=== PATIENT | male | born 1990 | race Caucasian/White ===

== ENCOUNTER 2021-10-19 21:45 | Emergency (ER) | payer BC ==
--- NOTE | 2021-10-19 22:34 | ER ---
Nurse's Notes [facility] Name: Juan Gold Age: 31 yrs Sex: Male : 1990 Arrival Date: 10/19/2021 Time: 22:17 Bed Waiting Private MD: Diagnosis: ED Course: 10/19 22:17 Patient arrived in ED. alicja Administered Medications: No medications were administered Outcome: 22:34 Patient left the ED. ld1 Signatures: Mellissa Marsh RN RN ld1 Irene Bolton
== END 2021-10-19 22:34 | disposition left against medical advice (07) ==
LOC: ER 21:45
DX: Z02.9 Encounter for administrative examinations, unspecified (principal)

== ENCOUNTER 2021-10-20 04:46 | Emergency (ER) | payer BC ==
--- OUTSIDE RECORDS SUMMARY | 2021-10-20 04:48 | XMS REPORT | Continuity of Care Document ---
:[address] [facility] t Address [address] [place] [address] Care Team Providers Name Role Phone LISETTE Attending Clinician Unavailable Elie Muller Attending Clinician Unavailable Elie Muller Admitting Clinician Unavailable Payers Payer Name Policy Type Policy Number Effective Date Expiration Date S ource Problems This patient has no known problems. Allergies, Adverse Reactions, Alerts Allergy Allergy Status Severity Reaction(s) Onset Inactive Treating Comm ents Source Name Type Date Date Clinician No Known DA Active U [facility] Allergie 07-04 Clear s 00:00: [facility] morphine DA Active U [facility] 07-04 Clear 00:00: [facility] No Known DA Active U [facility] Contrast 07-10 Clear Allergie 00:00: [facility] No Known DA Active U 2005-0 [facility] Drug 07-10 Clear Allergie 00:00: [facility] No Known DA Active U 2005-0 [facility] Food 07-10 Clear Allergie 00:00: [facility] No Known DA Active U 2005-0 [facility] Other 07-10 Clear Allergie 00:00: [facility] Medications This patient has no known medications. Procedures This patient has no known procedures. Encounters Start End Encounter Admission Attending Care Care Encounter Source Date/Time Date/Time Type Type Clinicians Facility Department ID 2020-11-03 2020-11-03 Outpatient LISETTE [facility] [id number] [place] 00:00:00 00:00:00 FRAN 539 Method i 2020-09-16 2020-09-16 Outpatient LISETTE [facility] [id number] [place] 00:00:00 00:00:00 FRAN 837 Method i 2020-09-16 2020-09-16 Outpatient LISETTE [facility] [id number] [place] 00:00:00 00:00:00 FRAN 666 Method i 2020-09-16 2020-09-16 Outpatient LISETTE [facility] [id number] [place] 00:00:00 00:00:00 FRAN 812 Method i 2020-09-15 2020-09-15 Outpatient LISETTE [facility] [id number] [place] 00:00:00 00:00:00 FRAN [address] 2018-07-04 2018-07-06 Inpatient EM Renzo, [facility] [id number] [facility] 19:34:00 11:24:[address] Results Test Description Test Time Test Comments Results Result Comments Source CALPROTECTIN FECAL 2018-07-12 14:16:00 Test Item Value Reference Range Interpretation Comme nts CALPROTECTIN FECAL (test code 158 ug/g 0-120 H Concentration Interpretation = CALFECAL) Follow-Up<16 - 50 ug/g Normal None>50 -12 0 ug/g Borderline Re-evaluate in 4-6 weeks>120 ug/g Abnormal Re peat as clinically indicatedConcen tration Interpretation Follow-Up<16 - 50 ug/g Normal None>50 -120 ug/g Borderline Re-evaluate in 4-6 weeks >120 u g/g Abnormal Repeat as clini anais indicatedPerformed At: [facility] [place], [place] [id number] Sanjai MD Ph:[phone] reported result: 158 ug/ gEdited by: INFCE on 07/12/18:[id number] 1416: CALPROTECTIN FE previously reported as: 158 Concentr ation Interpretation Follow-Up <16 - 50 ug/g Normal None >5 0 -120 ug/g Borderline Re-evaluate in 4-6 weeks >120 ug/g Abnormal Repeat as clinically indicated CALPROTECTIN [id number] 13:07:00 Test Item Value Reference Range Interpretation Comments CALPROTECTIN FECAL 158 Concentra tion (test code = CALFECAL) Inter pretation Follow-Up<16 - 50 ug/g Normal None>50 -120 ug /g Borderline Re-evaluate in 4-6 weeks>120 ug/g Abnormal Re peat as clinically ind icated SED RATE [id number] 09:16:00 Test Item Value Reference Range Interpretation Comments SED RATE JAYE (test code = 6 mm/hr 0-15 N SEDW) C REACTIVE [id number] 08:05:00 Test Item Value Reference Range Interpretation Comments C REACTIVE PROTEIN (test code = 30.0 MG/L 0.0-2.9 H CRP)
[2021-10-20] MEDS ORDERED: KETOROLAC 30 MG/ML INJ ONE (06:25)
[2021-10-20] MEDS ORDERED: dexAMETHasone 4 MG TAB ONE (06:25)
--- NOTE | 2021-10-20 06:27 | EDPHYS ---
Physician Documentation [facility] Name: Juan Gold Age: 31 yrs Sex: Male : 1990 Arrival Date: 10/20/2021 Time: 04:51 Bed 5 Private MD: JENNY Physician Gene Scott HPI: 10/20 06:17 This 31 yrs old Male presents to ER via Ambulatory with complaints of Back millicent Pain. 06:17 The patient presents with pain and decreased range of motion. The symptoms are located millicent in the low back, lumbar area. Onset: The symptoms/episode began/occurred 2 day(s) ago. The pain does not radiate. Associated signs and symptoms: The patient has no apparent associated signs or symptoms. The problem was sustained without known cause. Severity of symptoms: At their worst the symptoms were mild, moderate, in the emergency department the symptoms are unchanged. The patient has experienced similar episodes in the past, multiple times. Historical: - Allergies: 05:58 No Known Allergies; ll3 - Home Meds: 05:58 None [Active]; ll3 - PMHx: 05:58 None; ll3 - PSHx: 05:58 None; ll3 - Immunization history:: Client reports receiving the 2nd dose of the Covid vaccine. - Social history:: Smoking status: Patient denies any tobacco usage or history of. - Family history:: not pertinent. ROS: 06:17 Constitutional: Negative for fever, chills, and weight loss, Eyes: Negative for injury, millicent pain, redness, and discharge, ENT: Negative for injury, pain, and discharge, Neck: Negative for injury, pain, and swelling, Cardiovascular: Negative for chest pain, palpitations, and edema, Respiratory: Negative for shortness of breath, cough, wheezing, and pleuritic chest pain, Abdomen/GI: Negative for abdominal pain, nausea, vomiting, diarrhea, and constipation, : Negative for injury, bleeding, discharge, and swelling, MS/Extremity: Negative for injury and deformity, Skin: Negative for injury, rash, and discoloration, Neuro: Negative for headache, weakness, numbness, tingling, and seizure, Psych: Negative for depression, anxiety, suicide ideation, homicidal ideation, and hallucinations, Allergy/Immunology: Negative for hives, rash, and allergies, Endocrine: Negative for neck swelling, polydipsia, polyuria, polyphagia, and marked weight changes, Hematologic/Lymphatic: Negative for swollen nodes, abnormal bleeding, and unusual bruising. 06:17 Back: Positive for injury or acute deformity, decreased range of motion. Exam: 06:17 Constitutional: This is a well developed, well nourished patient who is awake, alert, millicent and in no acute distress. Head/Face: Normocephalic, atraumatic. Eyes: Pupils equal round and reactive to light, extra-ocular motions intact. Lids and lashes normal. Conjunctiva and sclera are non-icteric and not injected. Cornea within normal limits. Periorbital areas with no swelling, redness, or edema. ENT: Nares patent. No nasal discharge, no septal abnormalities noted. Tympanic membranes are normal and external auditory canals are clear. Oropharynx with no redness, swelling, or masses, exudates, or evidence of obstruction, uvula midline. Mucous membranes moist. Neck: Trachea midline, no thyromegaly or masses palpated, and no cervical lymphadenopathy. Supple, full range of motion without nuchal rigidity, or vertebral point tenderness. No Meningismus. Chest/axilla: Normal chest wall appearance and motion. Nontender with no deformity. No lesions are appreciated. Cardiovascular: Regular rate and rhythm with a normal S1 and S2. No gallops, murmurs, or rubs. Normal PMI, no JVD. No pulse deficits. Respiratory: Lungs have equal breath sounds bilaterally, clear to auscultation and percussion. No rales, rhonchi or wheezes noted. No increased work of breathing, no retractions or nasal flaring. Abdomen/GI: Soft, non-tender, with normal bowel sounds. No distension or tympany. No guarding or rebound. No evidence of tenderness throughout. Male : Normal genitalia with no discharge or lesions. Skin: Warm, dry with normal turgor. Normal color with no rashes, no lesions, and no evidence of cellulitis. MS/ Extremity: Pulses equal, no cyanosis. Neurovascular intact. Full, normal range of motion. Neuro: Awake and alert, GCS 15, oriented to person, place, time, and situation. Cranial nerves II-XII grossly intact. Motor strength 5/5 in all extremities. Sensory grossly intact. Cerebellar exam normal. Normal gait. Psych: Awake, alert, with orientation to person, place and time. Behavior, mood, and affect are within normal limits. 06:17 Back: pain, that is mild, ROM is painful, normal spinal alignment noted, CVA tenderness, is absent, muscle spasm, is not present. Vital Signs: 05:53 BP 136 / 96; Pulse 76; Resp 16; Temp 96.9(O); Pulse Ox 100% on R/A; Weight 98.88 kg ll3 (R); Height 6 ft. 2 in. (187.96 cm); Pain 7/10; 05:53 Body Mass Index 27.99 (98.88 kg, 187.96 cm) ll3 MDM: 05:54 Patient medically screened. millicent 06:17 Differential diagnosis: chronic back pain, Fracture Joint Injury Osteomyelitis spinal millicent injury, sprain. Data reviewed: vital signs, nurses notes. Administered Medications: 06:26 Drug: Ketorolac 60 mg Route: IM; Site: left gluteus; as6 06:26 Follow up: Response: No adverse reaction as6 06:26 Drug: Decadron (dexamethasone) 4 mg Route: PO; as6 06:26 Follow up: Response: No adverse reaction as6 Disposition Summary: 10/20/21 06:27 Discharge Ordered Location: Home millicent Problem: new millicent Symptoms: have improved millicent Condition: Stable millicent Diagnosis - Low back pain millicent - Injury of muscle, fascia and tendon of abdomen, lower back and pelvis - L5 pars millicent Defect Followup: millicent - With: Private Physician - When: 2 - 3 days - Reason: Recheck today's complaints, Continuance of care, Re-evaluation by your physician Discharge Instructions: - Discharge Summary Sheet millicent - Acute Back Pain, Adult millicent - Chronic Back Pain millicent - Musculoskeletal Pain millicent - Chronic Back Pain, [id number] millicent Forms: - Medication Reconciliation Form millicent - Thank You Letter millicent - Antibiotic Education millicent - Prescription Opioid Use millicent Prescriptions: - dexamethasone 2 mg Oral tablet - take 1 tablet by ORAL route 3 times per day; 9 tablet; Refills: 0, Product millicent Selection Permitted - Ibuprofen 600 mg Oral Tablet - take 1 tablet by ORAL route every 6 hours As needed take with food; 30 tablet; millicent Refills: 0, Product Selection Permitted - Cyclobenzaprine 5 mg Oral Tablet - take 1 tablet by ORAL route 3 times per day As needed; 15 tablet; Refills: 0, millicent Product Selection Permitted - Tylenol-Codeine #3 300 mg-30 mg Oral - take 2 tablet by ORAL route every 6 hours; 20 tablet; Refills: 0, Product millicent Selection Permitted Signatures: Gene Scott MD MD cha Slawson, Ashby RN RN as6 Teena Stout RN RN ll3
--- NOTE | 2021-10-20 06:27 | ER ---
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 Coronavirus screen: Vaccine status: Patient reports receiving the 2nd dose of the covid vaccine. At this time, the client does not indicate any symptoms associated with coronavirus-19. Ebola Screen: No symptoms or risks identified at this time. Initial Sepsis Screen: Does the patient meet any 2 criteria? No. Patient's initial sepsis screen is negative. Does the patient have a suspected source of infection? No. Patient's initial sepsis screen is negative. Risk Assessment: Do you want to hurt yourself or someone else? Patient reports no desire to harm self or others. Onset of symptoms was October 17, 2021. 05:53 Method Of Arrival: Ambulatory ll3 05:53 Acuity: MEL 3 ll3 Triage Assessment: 05:58 General: Appears uncomfortable, Behavior is calm, cooperative. Pain: Complains of pain ll3 in lumbar area Pain currently is 7 out of 10 on a pain scale. Pain began 2-3 days ago. Is continuous, Aggravated by repositioning. Musculoskeletal: Circulation, motion, and sensation intact. States if sitting on ground, cant stand up Reports pain in low back area. Historical: - Allergies: 05:58 No Known Allergies; ll3 - Home Meds: 05:58 None [Active]; ll3 - PMHx: 05:58 None; ll3 - PSHx: 05:58 None; ll3 - Immunization history:: Client reports receiving the 2nd dose of the Covid vaccine. - Social history:: Smoking status: Patient denies any tobacco usage or history of. - Family history:: not pertinent. Screenin:00 Abuse screen: Denies threats or abuse. Nutritional screening: No deficits noted. ll3 Tuberculosis screening: No symptoms or risk factors identified. Fall Risk No fall in past 12 months (0 pts). No secondary diagnosis (0 pts). No IV (0 pts). Ambulatory Aid- None/Bed Rest/Nurse Assist (0 pts). Gait- Normal/Bed Rest/Wheelchair (0 pts) Mental Status- Oriented to own ability (0 pts). Total Drake Fall Scale indicates No Risk (0-24 pts). Assessment: 06:00 General: See triage assessment. Neuro: Level of Consciousness is awake, alert, obeys ll3 commands, Oriented to person, place, time, situation. Vital Signs: 05:53 BP 136 / 96; Pulse 76; Resp 16; Temp 96.9(O); Pulse Ox 100% on R/A; Weight 98.88 kg ll3 (R); Height 6 ft. 2 in. (187.96 cm); Pain 7/10; 05:53 Body Mass Index 27.99 (98.88 kg, 187.96 cm) ll3 ED Course: 04:51 Patient arrived in ED. bp1 05:53 Teena Stout, EDWAR is Primary Nurse. ll3 05:54 Gene Scott MD is Attending Physician. millicent 05:58 Triage completed. ll3 05:58 Arm band placed on Patient placed in an exam room, on a stretcher, on pulse oximetry. ll3 06:00 Patient has correct armband on for positive identification. Bed in low position. Call ll3 light in reach. Side rails up X 1. 06:38 No provider procedures requiring assistance completed. Patient did not have IV access lg3 during this emergency room visit. Administered Medications: 06:26 Drug: Ketorolac 60 mg Route: IM; Site: left gluteus; as6 06:26 Follow up: Response: No adverse reaction as6 06:26 Drug: Decadron (dexamethasone) 4 mg Route: PO; as6 06:26 Follow up: Response: No adverse reaction as6 Outcome: 06:27 Discharge ordered by . millicent 06:38 Discharged to home ambulatory. lg3 06:38 Condition: stable 06:38 Discharge instructions given to patient, Instructed on discharge instructions, follow up and referral plans. medication usage, Demonstrated understanding of instructions, follow-up care, medications, Prescriptions given X 4. 06:39 Patient left the ED. lg3 Signatures: Gene Scott MD MD cha Gibson, Lacie, RN RN lg3 Serena Willams Ashby, RN RN as6 Teena Stout RN RN ll3
[2021-10-20 07:54] VITALS: BP 136/96; TEMP 96.9; O2SAT 100
== END 2021-10-20 06:39 | disposition home or self-care (01) ==
LOC: ER 04:46
DX: S39.001A Unspecified injury of muscle, fascia and tendon of abdomen, initial encounter (principal); S39.092A Other injury of muscle, fascia and tendon of lower back, initial encounter; S39.003A Unspecified injury of muscle, fascia and tendon of pelvis, initial encounter
CPT/HCPCS: 96372; 99283; J8540

== ENCOUNTER 2021-12-07 09:49 | Observation (INO) | payer BC ==
--- OUTSIDE RECORDS SUMMARY | 2021-12-07 09:52 | XMS REPORT | Continuity of Care Document ---
:1990 Author Organization [facility] t Address [address] [place] [address] Care Team Providers Name Role Phone LIANAIN Attending Clinician Unavailable LISETTE Attending Clinician Unavailable Elie Muller Attending Clinician Unavailable Elie Muller Admitting Clinician Unavailable Payers Payer Name Policy Type Policy Number Effective Date Expiration Date S ource Problems This patient has no known problems. Allergies, Adverse Reactions, Alerts Allergy Allergy Status Severity Reaction(s) Onset Inactive Treating Comm ents Source Name Type Date Date Clinician No Known DA Active U 0 [facility] Allergie 16 Clear s 00:00: [facility] morphine DA Active U [facility] 07-04 Clear 00:00: [facility] No Known DA Active U [facility] Contrast 07-10 Clear Allergie 00:00: [facility] No Known DA Active U 2005-0 [facility] Drug 07-10 Clear Allergie 00:00: [facility] No Known DA Active U 2005-0 [facility] Food - Clear Allergie 00:00: [facility] No Known DA Active U 2005-0 [facility] Other 07-10 Clear Allergie 00:00: [facility] Medications This patient has no known medications. Procedures This patient has no known procedures. Encounters Start End Encounter Admission Attending Care Care Encounter Source Date/Time Date/Time Type Type Clinicians Facility Department ID 2021-10-20 2021-10-20 Outpatient JUDY, [facility] [id number] [place] 00:00:00 00:00:00 L[address] 2020-11-03 2020-11-03 Outpatient LISETTE, [facility] [id number] [place] 00:00:00 00:00:00 FRAN 539 Method i 2020-09-16 2020-09-16 Outpatient LISETTE [facility] 2099 [id number] [place] 00:00:00 00:00:00 FRAN 837 Method i 2020-09-16 2020-09-16 Outpatient SCHTAN, [facility] [id number] [place] 00:00:00 00:00:00 FRAN 666 Method i 2020-09-16 2020-09-16 Outpatient LISETTE, [facility] [id number] [place] 00:00:00 00:00:00 FRAN 812 Method i 2020-09-15 2020-09-15 Outpatient NICOLEVIVIANEJENNIFFER [facility] [id number] [place] 00:00:00 00:00:00 FRAN [address] 2018-07-04 2018-07-06 Inpatient EM Renzo, [facility] [id number] [facility] 19:34:00 11:24:[address] Results Test Description Test Time Test [...] Abnormal Repeat as clini anais indicatedPerformed At: [facility] [address] [place], [place] [id number] Sanjai MD Ph:[phone] reported result: 158 ug/ gEdited by: INFCE on 07/12/18:[id number] 1416: CALPROTECTIN FE previously reported as: 158 Concentr ation Interpretation Follow-Up <16 - 50 ug/g Normal None >5 0 -120 ug/g Borderline Re-evaluate in 4-6 weeks >120 ug/g Abnormal Repeat as clinically indicated CALPROTECTIN [id number] 13:07:00 Test Item Value Reference Range Interpretation Comments CALPROTECTIN FECAL 158 Concentra tion (test code = CALFECAL) Inter pretation Follow-Up<16 - 50 ug/g Normal None>50 -120 ug /g Borderline Re-evaluate in 4-6 weeks>120 ug/g Abnormal Re peat as clinically ind icated SED RATE [id number] 09:16:00 Test Item Value Reference Range Interpretation Comments SED RATE JAYE (test code = 6 mm/hr 0-15 N SEDW) C REACTIVE [id number] 08:05:00 Test Item Value Reference Range Interpretation Comments C REACTIVE PROTEIN (test code = 30.0 MG/L 0.0-2.9 H CRP)
[2021-12-07] MEDS ORDERED: NA CHLORIDE 0.9% 2,000 ML ONE (10:13)
[2021-12-07 10:20] LABS: Absolute Lymphocytes (CBC) 0.9 K/uL (0.7-4.9); Hematocrit 45.6 % (39.6-49.0); Lymphocytes % 6.7 % (15.3-44.8); MPV 8.6 fL (7.6-11.3)
[2021-12-07 10:21] LABS: Protime INR 1.01
[2021-12-07 10:39] LABS: Albumin 3.8 g/dL (3.4-5.0); Bilirubin Direct 0.2 mg/dL (0-0.2); Bilirubin Total 0.7 mg/dL (0.2-1.0); Magnesium 1.7 mg/dL (1.8-2.4); Potassium 3.5 mmol/L (3.5-5.1); Protein, Total 7.3 g/dL (6.4-8.2); Troponin High Sensitivity 3.5 pg/mL (<58.9)
--- NOTE | 2021-12-07 10:52 | ER ---
Nurse's Notes [facility] Name: Juan Gold Age: 31 yrs Sex: Male : 1990 Arrival Date: 12/07/2021 Time: 09:54 Bed 8 Private MD: Diagnosis: Chest pain, unspecified;Angina pectoris, unspecified;Essential (primary) hypertension;Hypomagnesemia Presentation: 12/07 09:55 Chief complaint: EMS states: Toned out for Mid-sternal CP, left arm and left leg jl7 tingling; Nitro SL, 81 mg Aspirin x 4, 50 mcg Fentanyl IVP, 4 mg Zofran IVP given in route. Coronavirus screen: At this time, the client does not indicate any symptoms associated with coronavirus-19. Ebola Screen: No symptoms or risks identified at this time. Initial Sepsis Screen: Does the patient meet any 2 criteria? No. Patient's initial sepsis screen is negative. Does the patient have a suspected source of infection? No. Patient's initial sepsis screen is negative. Risk Assessment: Do you want to hurt yourself or someone else? Patient reports no desire to harm self or others. Onset of symptoms was December 07, 2021 at 09:00. Care prior to arrival: Medication(s) given: ASA, 81 mg, x 4, zofran 4 mg, Nitro sublingual x 1 ; 50 mcg fentanyl IVP IV initiated. 18 GA, in the right antecubital area, Glucose check: 134. 09:55 Method Of Arrival: EMS: [facility] 7 09:55 Acuity: MEL 2 jl7 Triage Assessment: 09:58 General: Appears in no apparent distress. uncomfortable, Behavior is cooperative, jl7 anxious. Pain: Complains of pain in mid-sternal area Pain radiates to left arm and left leg Pain currently is 6 out of 10 on a pain scale. at worst was 9 out of 10 on a pain scale. Quality of pain is described as pressure, Pain began 1 hour ago. Is continuous. Neuro: Level of Consciousness is awake, alert, obeys commands, Oriented to person, place, time, situation. Cardiovascular: Patient's skin is warm and dry. Chest pain is described as Pain is 6 out of 10 on a pain scale. quality is pressure, is located in anterior radiates to left arm(s) began 1 hour prior to arrival episodes are continuous. Respiratory: Airway is patent Respiratory effort is even, unlabored, Respiratory pattern is regular, symmetrical. Derm: Skin is pink, warm \T\ dry. Historical: - Allergies: 09:58 Codeine; jl7 - Home Meds: :58 None [Active]; jl7 - PMHx: 09:58 None; jl7 - PSHx: 09:58 None; jl7 - Immunization history:: Client reports receiving the 2nd dose of the Covid vaccine. - Social history:: Smoking status: Patient denies any tobacco usage or history of. - Family history:: not pertinent. Screenin:02 Abuse screen: Denies threats or abuse. Denies injuries from another. Nutritional jl7 screening: No deficits noted. Tuberculosis screening: No symptoms or risk factors identified. Fall Risk IV access (20 points). Total Drake Fall Scale indicates No Risk (0-24 pts). Assessment: 12:02 Reassessment: Patient and/or family updated on plan of care and expected duration. Pain jg9 level reassessed. Patient is alert, oriented x 3, equal unlabored respirations, skin warm/dry/pink. Patient states feeling better. Patient states symptoms have improved. Pain: Complains of pain in left leg and left arm and chest and mid-sternal area Pain currently is 5 out of 10 on a pain scale. 13:00 Reassessment: Patient appears in no apparent distress at this time. No changes from jl7 previously documented assessment. Patient and/or family updated on plan of care and expected duration. Pain level reassessed. Patient is alert, oriented x 3, equal unlabored respirations, skin warm/dry/pink. 14:00 Reassessment: Patient appears in no apparent distress at this time. No changes from jl7 previously documented assessment. Patient and/or family updated on plan of care and expected duration. Pain level reassessed. Patient is alert, oriented x 3, equal unlabored respirations, skin warm/dry/pink. 15:00 Reassessment: Patient appears in no apparent distress at this time. No changes from jl7 previously documented assessment. Patient and/or family updated on plan of care and expected duration. Pain level reassessed. Patient is alert, oriented x 3, equal unlabored respirations, skin warm/dry/pink. 16:00 Reassessment: Patient appears in no apparent distress at this time. No changes from [facility] previously documented assessment. Patient and/or family updated on plan of care and expected duration. Pain level reassessed. Patient is alert, oriented x 3, equal unlabored respirations, skin warm/dry/pink. 17:00 Reassessment: Patient appears in no apparent distress at this time. No changes from [facility] previously documented assessment. Patient and/or family updated on plan of care and expected duration. Pain level reassessed. Patient is alert, oriented x 3, equal unlabored respirations, skin warm/dry/pink. Vital Signs: 09:55 BP 121 / 87; Pulse 99; Resp 17; Temp 98.3; Pulse Ox 100% on R/A; Weight 98.88 kg; jl7 Height 6 ft. 2 in. (187.96 cm); Pain 6/10; 10:00 BP 117 / 83; Pulse 92; Resp 22 S; Pulse Ox 98% on R/A; Pain 6/10; jg9 10:30 BP 121 / 77; Pulse 110; Resp 22 S; Pulse Ox 95% on R/A; jg9 11:00 BP 134 / 89; Pulse 105; Resp 17 S; Pulse Ox 99% on R/A; Pain 6/10; jg9 11:30 BP 122 / 84; Pulse 99; Resp 16 S; Pulse Ox 98% on R/A; Pain 6/10; jg9 12:00 BP 142 / 72; Pulse 91; Resp 14 S; Pulse Ox 98% on R/A; Pain 4/10; jg9 13:00 BP 116 / 58; Pulse 77; Resp 24 S; Pulse Ox 96% on R/A; jg9 14:00 BP 112 / 62; Pulse 73; Resp 16 S; Pulse Ox 99% on R/A; jg9 15:00 BP 117 / 57; Pulse 86; Resp 15; Pulse Ox 95% ; jl7 16:00 BP 111 / 69; Pulse 83; Resp 20; Pulse Ox 95% ; 7 09:55 Body Mass Index 27.99 (98.88 kg, 187.96 cm) [facility] ED Course: 09:54 Patient arrived in ED. [facility] 09:55 Gene Scott MD is Attending Physician. [facility] 09:58 Triage completed. jl7 09:58 Arm band placed on right wrist. jl7 10:02 Patient has correct armband on for positive identification. Placed in gown. Bed in low jl7 position. Call light in reach. Side rails up X 1. Client placed on continuous cardiac and pulse oximetry monitoring. NIBP monitoring applied. 10:02 EKG done, by ED staff, reviewed by Gene Scott MD. Patient maintains SpO2 saturation jl7 greater than 95% on room air. 10:03 Josemanuel Cross RN is Primary Nurse. jl7 10:47 XRAY Chest (1 view) In Process Unspecified. EDMS 10:50 Tavares Ojeda MD is Hospitalizing Provider. [facility] 12:03 No apparent distress. Resting quietly. jg9 12:07 Pt visited by mother. jg9 14:10 No provider procedures requiring assistance completed. jg9 14:10 Patient admitted, IV remains in place. 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 ): Aspirin 81 mg PO once jl7 11:40 Drug: morphine 4 mg {Note: RASS-0.} Route: IVP; Infused Over: 4 mins; Site: right j9 antecubital; 11:58 Follow up: Response: No adverse reaction; Pain is decreased jg9 11:41 Drug: Zofran (Ondansetron) 4 mg Route: IVP; Infused Over: 2 mins; Site: right jg9 antecubital; 11:58 Follow up: Response: No adverse reaction jg9 11:42 Drug: Lovenox (enoxaparin) 1 mg/kg Route: Sub-Q; Site: right lower abdomen; jg9 11:58 Follow up: Response: No adverse reaction jg9 11:43 Drug: NS 0.9% 1000 ml Route: IV; Rate: 125 ml/hr; Site: right antecubital; jg9 17:36 Follow up: IV Status: Infusion continued upon admission jl7 17:36 Follow up: Response: No adverse reaction jl7 11:43 Drug: Magnesium Sulfate 2 grams Route: IVPB; Infused Over: 2 hrs; Site: right 9 antecubital; 14:09 Follow up: IV Status: Completed infusion; IV Intake: 50ml j9 11:44 Drug: Lopressor (metoprolol TARTRATE) 50 mg Route: PO; j9 11:58 Follow up: Response: No adverse reaction jg9 Medication: 11:57 VIS not applicable for this client. jg9 Intake: 11:42 IV: 1000ml; Total: 1000ml. jg9 14:09 IV: 50ml; Total: 1050ml. jg9 Outcome: 10:52 Decision to Hospitalize by Provider. [facility] 18:00 Admitted to Tele accompanied by tech, family with patient, via wheelchair, room 201, [facility] with chart, Report called to EDWAR Martin 18:00 Condition: stable 18:00 Discharge instructions given to patient, family, Instructed on the need for admit, Demonstrated understanding of instructions. 18:00 Patient left the ED. jl7 Signatures: Dispatcher [employer] EDHI Gene Scott MD MD cha Leal, Jahala, RN RN jl7 Katherine De Guzman RN RN jg9 Corrections: (The following items were deleted from the chart) 09:58 09:58 Allergies: No Known Allergies; 7 jl7 10:00 09:55 Chief complaint: EMS states: Toned out for Mid-sternal CP, non radiating, Nitor jl7 SL, 81 mg Aspirin x 4, 50 mcg Fentanyl IVP, 4 mg Zofran IVP given in route jl7 18:00 14:10 Admitted to ER Hold. Please see [facility] for further documentation. jg9 jl7 18:00 14:10 Condition: stable j9 jl7
--- NOTE | 2021-12-07 10:52 | EDPHYS ---
Physician Documentation [facility] Name: Juan Gold Age: 31 yrs Sex: Male : 1990 Arrival Date: 12/07/2021 Time: 09:54 Bed 8 Private MD: ED Physician Gene Scott HPI: 12/07 10:46 This 31 yrs old Male presents to ER via EMS with complaints of Chest Pain. millicent 10:46 The patient or guardian reports chest pain that is located primarily in the substernal millicent area. The pain radiates to both arms, Associated signs and symptoms: Pertinent positives: diaphoresis, lightheadedness, shortness of breath. The chest pain is described as a heaviness, causing indigestion, a pressure. Duration: The patient or guardian reports a single episode, that is still ongoing. Modifying factors: The symptoms are alleviated by nothing. the symptoms are aggravated by nothing. Severity of pain: At its worst the pain was moderate in the emergency department the pain is unchanged. The patient has experienced similar episodes in the past, multiple times. Historical: - Allergies: 09:58 Codeine; jl7 - Home Meds: 09:58 None [Active]; jl7 - PMHx: 09:58 None; jl7 - PSHx: 09:58 None; jl7 - Immunization history:: Client reports receiving the 2nd dose of the Covid vaccine. - Social history:: Smoking status: Patient denies any tobacco usage or history of. - Family history:: not pertinent. ROS: 10:46 Constitutional: Negative for fever, chills, and weight loss, Eyes: Negative for injury, millicent pain, redness, and discharge, ENT: Negative for injury, pain, and discharge, Neck: Negative for injury, pain, and swelling, Respiratory: Negative for shortness of breath, cough, wheezing, and pleuritic chest pain, Abdomen/GI: Negative for abdominal pain, nausea, vomiting, diarrhea, and constipation, Back: Negative for injury and pain, : Negative for injury, bleeding, discharge, and swelling, MS/Extremity: Negative for injury and deformity, Skin: Negative for injury, rash, and discoloration, Neuro: Negative for headache, weakness, numbness, tingling, and seizure, Psych: Negative for depression, anxiety, suicide ideation, homicidal ideation, and hallucinations, Allergy/Immunology: Negative for hives, rash, and allergies, Endocrine: Negative for neck swelling, polydipsia, polyuria, polyphagia, and marked weight changes, Hematologic/Lymphatic: Negative for swollen nodes, abnormal bleeding, and unusual bruising. 10:46 Cardiovascular: Positive for chest pain, of the chest. Exam: 10:46 Constitutional: This is a well developed, well nourished patient who is awake, alert, millicent and in no acute distress. Head/Face: Normocephalic, atraumatic. Eyes: Pupils equal round and reactive to light, extra-ocular motions intact. Lids and lashes normal. Conjunctiva and sclera are non-icteric and not injected. Cornea within normal limits. Periorbital areas with no swelling, redness, or edema. ENT: Nares patent. No nasal discharge, no septal abnormalities noted. Tympanic membranes are normal and external auditory canals are clear. Oropharynx with no redness, swelling, or masses, exudates, or evidence of obstruction, uvula midline. Mucous membranes moist. Neck: Trachea midline, no thyromegaly or masses palpated, and no cervical lymphadenopathy. Supple, full range of motion without nuchal rigidity, or vertebral point tenderness. No Meningismus. Chest/axilla: Normal chest wall appearance and motion. Nontender with no deformity. No lesions are appreciated. Cardiovascular: Regular rate and rhythm with a normal S1 and S2. No gallops, murmurs, or rubs. Normal PMI, no JVD. No pulse deficits. Respiratory: Lungs have equal breath sounds bilaterally, clear to auscultation and percussion. No rales, rhonchi or wheezes noted. No increased work of breathing, no retractions or nasal flaring. Abdomen/GI: Soft, non-tender, with normal bowel sounds. No distension or tympany. No guarding or rebound. No evidence of tenderness throughout. Back: No spinal tenderness. No costovertebral tenderness. Full range of motion. Male : Normal genitalia with no discharge or lesions. Skin: Warm, dry with normal turgor. Normal color with no rashes, no lesions, and no evidence of cellulitis. MS/ Extremity: Pulses equal, no cyanosis. Neurovascular intact. Full, normal range of motion. Neuro: Awake and alert, GCS 15, oriented to person, place, time, and situation. Cranial nerves II-XII grossly intact. Motor strength 5/5 in all extremities. Sensory grossly intact. Cerebellar exam normal. Normal gait. Psych: Awake, alert, with orientation to person, place and time. Behavior, mood, and affect are within normal limits. 10:54 ECG was reviewed by the Attending Physician. [facility] Vital Signs: 09:55 BP 121 / 87; Pulse 99; Resp 17; Temp 98.3; Pulse Ox 100% on R/A; Weight 98.88 kg; 7 Height 6 ft. 2 in. (187.96 cm); Pain 6/10; 10:00 BP 117 / 83; Pulse 92; Resp 22 S; Pulse Ox 98% on R/A; Pain 6/10; jg9 10:30 BP 121 / 77; Pulse 110; Resp 22 S; Pulse Ox 95% on R/A; j9 11:00 BP 134 / 89; Pulse 105; Resp 17 S; Pulse Ox 99% on R/A; Pain 6/10; jg9 11:30 BP 122 / 84; Pulse 99; Resp 16 S; Pulse Ox 98% on R/A; Pain 6/10; jg9 12:00 BP 142 / 72; Pulse 91; Resp 14 S; Pulse Ox 98% on R/A; Pain 4/10; jg9 13:00 BP 116 / 58; Pulse 77; Resp 24 S; Pulse Ox 96% on R/A; j9 14:00 BP 112 / 62; Pulse 73; Resp 16 S; Pulse Ox 99% on R/A; 9 15:00 BP 117 / 57; Pulse 86; Resp 15; Pulse Ox 95% ; 7 16:00 BP 111 / 69; Pulse 83; Resp 20; Pulse Ox 95% ; [facility] 09:55 Body Mass Index 27.99 (98.88 kg, 187.96 cm) [facility] MDM: 09:55 Patient medically screened. [facility] 10:49 Differential diagnosis: abnormal EKG, acute myocardial infarction, acute pericarditis, millicent anxiety, coronary artery disease gastritis, pancreatitis, pleurisy, pneumonia, unstable angina. HEART Score: History: Moderately Suspicious (1), ECG: Normal (0), Age: < or = 45 years (0), Risk Factors: 1 or 2 risk factors (1), [+ Family HX] Troponin: < or = 1 x Normal Limit (0). The patient's deep vein thrombosis risk score was calculated as follows: Total Score: 0. This patient was found to be at low risk for a deep vein thrombosis by using the Well's assessment criteria. The patient's pulmonary embolism risk score was calculated as follows: Total Score: 0-2 points. This patient was found to be at low risk for a pulmonary embolism by using the Well's assessment criteria. ANTONINA Risk Score: TOTAL SCORE = 0. Data reviewed: vital signs, nurses notes, EMS record, lab test result(s), EKG, radiologic studies, plain films. Data interpreted: lunchroom monitor: rate is 99 beats/min, rhythm is regular. Test interpretation: by ED physician or midlevel provider: ECG, plain radiologic studies. Counseling: I had a detailed discussion with the patient and/or guardian regarding: the historical points, exam findings, and any diagnostic results supporting the discharge/admit diagnosis, the presence of at least one elevated blood pressure reading (>120/80) during this emergency department visit, lab results, radiology results, the need for further work-up and treatment in the hospital. 12/07 09:56 Order name: Basic Metabolic Panel; Complete Time: 10:45 [facility] 12/07 09:56 Order name: CBC with Diff; Complete Time: 10:45 [facility] 12/07 09:56 Order name: LFT's; Complete Time: 10:45 [facility] 12/07 09:56 Order name: Magnesium; Complete Time: 10:45 [facility] 12/07 09:56 Order name: NT PRO-BNP; Complete Time: 10:45 [facility] 12/07 09:56 Order name: PT-INR; Complete Time: 10:45 [facility] 12/07 09:56 Order name: Troponin HS; Complete Time: 10:45 [facility] 12/07 09:56 Order name: UDS [facility] 12/07 10:01 Order name: SARS-COV-2 RT PCR (Document "Date of Onset" if Symptomatic); Complete Time: [facility] 17:45 12/07 13:12 Order name: Basic Metabolic Panel [facility] 12/07 13:12 Order name: Basic Metabolic Panel [facility] 12/07 13:12 Order name: CBC with Automated Diff [facility] 12/07 13:12 Order name: CBC with Automated Diff [facility] 12/07 13:12 Order name: Lipid Profile [facility] 12/07 09:56 Order name: XRAY Chest (1 view); Complete Time: 17:45 [facility] 12/07 09:56 Order name: EKG; Complete Time: 09:56 [facility] 12/07 13:09 Order name: CONS Physician Consult [facility] 12/07 13:12 Order name: Echo with Doppler [facility] 12/07 13:12 Order name: Lipid Profile; Complete Time: 17:45 [facility] 12/07 13:12 Order name: Troponin High Sensitivity [facility] 12/07 13:12 Order name: Troponin High Sensitivity; Complete Time: 17:45 [facility] 12/07 13:12 Order name: Troponin High Sensitivity [facility] 12/07 09:56 Order name: Cardiac monitoring; Complete Time: 10:03 [facility] 12/07 09:56 Order name: EKG - Nurse/Tech; Complete Time: 10:03 [facility] 12/07 09:56 Order name: IV Saline Lock; Complete Time: 10:03 [facility] 12/07 09:56 Order name: Labs collected and sent; Complete Time: 10:06 [facility] 12/07 09:56 Order name: O2 Per Protocol; Complete Time: 10:03 [facility] 12/07 09:56 Order name: O2 Sat Monitoring; Complete Time: 10:03 [facility] 12/07 13:12 Order name: Heart Healthy [facility] 12/07 13:12 Order name: NPO [facility] EC:54 Rate is 108 beats/min. Rhythm is regular. QRS [place] is Normal. [place] interval is normal. millicent QRS interval is normal. QT interval is normal. No Q waves. T waves are Normal. No ST changes noted. Clinical impression: Sinus tachycardia and No evidence of ischemia. Interpreted by me. Reviewed by me. 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 ): Aspirin 81 mg PO once jl7 11:40 Drug: morphine 4 mg {Note: RASS-0.} Route: IVP; Infused Over: 4 mins; Site: right jg9 antecubital; 11:58 Follow up: Response: No adverse reaction; Pain is decreased jg9 11:41 Drug: Zofran (Ondansetron) 4 mg Route: IVP; Infused Over: 2 mins; Site: right jg9 antecubital; 11:58 Follow up: Response: No adverse reaction jg9 11:42 Drug: Lovenox (enoxaparin) 1 mg/kg Route: Sub-Q; Site: right lower abdomen; jg9 11:58 Follow up: Response: No adverse reaction jg9 11:43 Drug: NS 0.9% 1000 ml Route: IV; Rate: 125 ml/hr; Site: right antecubital; jg9 17:36 Follow up: IV Status: Infusion continued upon admission jl7 17:36 Follow up: Response: No adverse reaction jl7 11:43 Drug: Magnesium Sulfate 2 grams Route: IVPB; Infused Over: 2 hrs; Site: right jg9 antecubital; 14:09 Follow up: IV Status: Completed infusion; IV Intake: 50ml jg9 11:44 Drug: Lopressor (metoprolol TARTRATE) 50 mg Route: PO; jg9 11:58 Follow up: Response: No adverse reaction jg9 Disposition Summary: 12/07/21 10:52 Hospitalization Ordered Hospitalization Status: Inpatient Admission millicent Provider: Tavares Ojeda cha Location: Telemetry/MedSurg (observation) millicent Condition: Fair millicent Problem: new millicent Symptoms: have improved millicent Bed/Room Type: Standard [facility] Room Assignment: 201(12/07/21 17:30) dw Diagnosis - Chest pain, unspecified millicent - Angina pectoris, unspecified millicent - Essential (primary) hypertension millicent - Hypomagnesemia millicent Forms: - Medication Reconciliation Form millicent - SBAR form millicent Signatures: Dispatcher [employer] Melvi Eller RN RN dw Anderson, Corey, MD MD cha Leal, Jahala, RN RN jl7 Katherine De Guzman RN RN jg9 Corrections: (The following items were deleted from the chart) 09:58 09:58 Allergies: No Known Allergies; 17:30 10:52 millicent dw
[2021-12-07] MEDS ORDERED: MORPHINE 4 MG/ML SYR ONE (11:37)
[2021-12-07] MEDS ORDERED: METOPROLOL TAR 50 MG TAB ONE (11:37)
[2021-12-07] MEDS ORDERED: Magnesium Sulfate 2gm IVPB 2 G/50 ML BAG IV ONE (11:38)
[2021-12-07] MEDS ORDERED: ENOXAPARIN 100 MG/ML SYR SQ ONE (11:38)
[2021-12-07] MEDS ORDERED: ONDANSETRON 4 MG/2 ML VIAL ONE (11:38)
--- NOTE | 2021-12-07 12:24 | RAD REPORT ---
EXAM DESCRIPTION: Sharita Single View12/07/2021 10:47 am CLINICAL HISTORY: Chest pain COMPARISON: none FINDINGS: The lungs appear clear of acute infiltrate. The heart is normal size IMPRESSION: No acute abnormalities displayed
[2021-12-07] MEDS ORDERED: ACETAMINOPHEN 500 MG TAB PO PRN (13:07)
--- NOTE | 2021-12-07 13:11 | P.HP ---
Certification for Inpatient Patient admitted to: Observation With expected LOS: <2 Midnights Practitioner: I am a practitioner with admitting privileges, knowledge of patient current condition, hospital course, and medical plan of care. Services: Services provided to patient in accordance with Admission requirements found in Title 42 Section 412.3 of the Code of Federal Regulations Patient History Date of Service: 12/07/21 Reason for admission: chest pain History of Present Illness: 31yo M , PMH: palpitations / chest pain Presents to ED due to sudden onset chest pain while walking to his truck this morning. Associated with nausea, lightheadedness, and shortness of breath. He was not doing any strenous physical activity today / yesterday. Reports ~2 year history of palpitations and similar chest pain episodes. States he has been worked up in [place] and [place] with echo, holter monitor, stress test. He states no definitive diagnosis, but has hear terms such as "car diomyopathy", " maker", "have the heart of a 89year old". He states he never underwent cardiac catheterization. His mom states she was told he had 70% blockage of something at one point, but unsure of exactly what. He does not take any medication, no over the counter medications, denies drug use, no significant caffeine intake. In the ED, EKG without acute ischemic changes, troponin negative, chest x-ray negative. Patient noted some improvement of symptoms after medication given. Allergies codeine Allergy (Verified 12/07/21 13:10) Hives/Rash Home medications list reviewed: Yes Home Medications: NK [No Home Meds] 12/07/21 - Past Medical/Surgical History Diabetic: No -: palpitations Past Surgical History: Patient denies surgical history - Family History Family History: Reviewed- Non-Contributory (none in first degree relatives. Maternal grandfather: MD in 40s) - Social History Smoking Status: Never smoker Alcohol use: No Place of Residence: Home Review of Systems 10-point ROS is otherwise unremarkable Physical Examination - Physical Exam General: Alert, In no apparent distress, Oriented x3 HEENT: PERRLA, Sclerae nonicteric Neck: Supple, No LAD Respiratory: Clear to auscultation bilaterally, Normal air movement Cardiovascular: No edema, Regular rate/rhythm, No murmurs Gastrointestinal: Soft and benign, Non-distended, No tenderness Musculoskeletal: No contractures, No erythema Integumentary: No rashes, No significant lesion Neurological: Normal speech, Normal affect - Studies Laboratory Data (last 24 hrs) 12/07/21 10:00: PT 11.1, INR 1.01 12/07/21 10:00: WBC 13.4 H, Hgb 15.6, Hct 45.6, Plt Count 218 12/07/21 10:00: Sodium 137, Potassium 3.5, BUN 18, Creatinine 1.13, Glucose 113 H, Magnesium 1.7 L, Total Bilirubin 0.7, AST 19, ALT 36, Alkaline Phosphatase 65 Assessment and Plan - Advance Directives Does patient have a Living Will: No Does patient have a Durable POA for Healthcare: No Physician Review Additional Text: Problem List Chest Pain h/o palpitations/chest pain obs, telemetry trend troponin cardiology consult given extensive / unclear history echo ordered stress test ordered for tomorrow aspirin/beta shraddha / statin for now will bring some of medical records from [facility] ekg without ST changes Code: full Dispo: home, likely tomorrow if doesn't need cardiac cath Time Spent Managing Pts Care (In Minutes): 65
[2021-12-07 15:45] VITALS: BMI 28.0
[2021-12-07 16:22] LABS: Troponin High Sensitivity 5.4 pg/mL (<58.9)
[2021-12-07] MEDS: METOPROLOL TAR 25 MG TAB PO SCH (21:00)
[2021-12-07] MEDS ORDERED: ATORVASTATIN 40 MG TAB PO SCH (21:00)
[2021-12-07 21:49] VITALS: O2SAT 99
[2021-12-08 04:35] LABS: Absolute Lymphocytes (CBC) 1.5 K/uL (0.7-4.9); Hematocrit 41.2 % (39.6-49.0); Lymphocytes % 24.8 % (15.3-44.8); MPV 8.7 fL (7.6-11.3); RBC Red Blood Cell Count 4.85 M/uL (4.33-5.43)
[2021-12-08 04:53] LABS: Potassium 4.1 mmol/L (3.5-5.1)
[2021-12-08 05:16] LABS: Magnesium 2.4 mg/dL (1.8-2.4)
[2021-12-08] MEDS ORDERED: REGADENOSON 0.4 MG/5 ML SYR IV ONE (07:15)
--- NOTE | 2021-12-08 07:21 | EKG ---
Test Date: 2021-12-07 Test Time: 09:46:26 Boxing Inspector: HERLINDA MEASUREMENT RESULTS: Intervals: Rate: 108 [place]: 124 QRSD: 90 QT: 328 QTc: 439 [place]: P: 59 [place]: 124 QRS: 105 T: 57 INTERPRETIVE STATEMENTS: Sinus tachycardia Rightward axis Cannot rule out Anterior infarct, age undetermined Abnormal ECG No previous ECG available for comparison Electronically Signed On 12-08-21 07:17:43 CDT by Jose G Darling
[2021-12-08] MEDS: METOPROLOL TAR 25 MG TAB PO SCH (08:46)
[2021-12-08] MEDS ORDERED: ENOXAPARIN 40 MG/0.4 ML SQ SCH (09:00)
[2021-12-08] MEDS ORDERED: ASPIRIN EC 81 MG TAB PO SCH (09:00)
--- NOTE | 2021-12-08 10:46 | RAD REPORT ---
EXAM DESCRIPTION: NM - Rest Stress Cardiac Imaging - 12/08/2021 10:35 am CLINICAL HISTORY: Chest pain. COMPARISON: None. TECHNIQUE: The patient was administered 10.2 mCi of Tc 99m Sestamibi prior to resting SPECT imaging of the heart. The patient was then administered 30.9 mCi of Tc 99m Sestamibi following exercise or ph armacologic stress. Multiplanar SPECT images were reviewed. FINDINGS: There is uniformity of radiotracer uptake involving the entire left ventricular myocardiu m on rest and stress images. The left ventricular ejection fraction equals 59% IMPRESSION: Negative for a myocardial perfusion defect
[2021-12-08 12:25] VITALS: BP 120/60; TEMP 97.1
--- NOTE | 2021-12-08 14:26 | ECHO ---
HEIGHT: 6 ft 2 in WEIGHT: 217 lb 15.889 oz DATE OF STUDY: 12/08/[address]: Tavares Ojeda MD 2-DIMENSIONAL: YES M.MODE: YES DOPPLER: YES COLOR FLOW: YES TDS: PORTABLE: YES DEFINITY: BUBBLE STUDY: DIAGNOSIS: CHEST PAIN CARDIAC HISTORY: CATHERIZATION: SURGERY: PROSTHETIC VALVE: PACEMAKER: MEASUREMENTS (cm) DIASTOLIC (NORMALS) SYSTOLIC (NORMALS) IVSd 0.9 (0.6-1.2) LA Diam 3.1 (1.9-4.0) LVEF 59% LVIDd 5.0 (3.5-5.7) LVIDs 3.4 (2.0-3.5) %FS 32% LVPWd 0.8 (0.6-1.2) Ao Diam 2.8 (2.0-3.7) 2 DIMENSIONAL ASSESSMENT: RIGHT ATRIUM: NORMAL LEFT ATRIUM: NORMAL RIGHT VENTRICLE: NORMAL LEFT VENTRICLE: NORMAL TRICUSPID VALVE: NORMAL MITRAL VALVE: NORMAL PULMONIC VALVE: NORMAL AORTIC VALVE: NORMAL PERICARDIAL EFFUSION: NONE AORTIC ROOT: NORMAL LEFT VENTRICULAR WALL MOTION: NORMAL DOPPLER/COLOR FLOW: TRACE TRICUSPID REGURGITATION. COMMENTS: TRACE TRICUSPID REGURGITATION. NORMAL LEFT VENTRICULAR SIZE AND FUNCTION. NO EFFUSION. TECHNOLOGIST: GIGI MUNOZ
--- NOTE | 2021-12-08 14:40 | TREADPHA ---
DX: CHEST PAIN Date of Study: 12/08/2021 Ht: 6' 2 " Wt: 217 lb 15.889 oz Consulting Physician: SADIA WYLIE MD MEDICATIONS: TYLENOL, ASPIRIN, LIPITOR, LOVENOX, LOPRESSOR HISTORY: 31 YEAR OLD WITH DYSPNEA ON EXERSION AND SHORTNESS OF BREATH PHYSICIAL EXAMINATION: RESTING B.P.: 107/69 RESTING H.R.: 60 RESTING EKG: NORMAL PROTOCOL: PHARMARCOLOGIC EXERCISE TIME: 3:30 B.P. AT [place]AK STRESS: 126/84 IMPRESSION: LEXISCAN INJECTED. CARDIOLITE INJECTED (SEE NUCLEAR MEDICINE REPORT). COMPLAINTS OF SHORTNESS OF BREATH. NO COMPLAINTS OF CHEST PAIN. NO VENTRICULAR TACHYCARDIA/ SUPRAVENTRICULAR TACHYCARDIA. NO ARRHYTHMIA NOTED.
--- NOTE | 2021-12-08 19:45 | P.DS ---
Admission Date: 12/07/21 Discharge Date: 12/08/21 Disposition: ROUTINE DISCHARGE Discharge Condition: GOOD Reason for Admission: chest pain Consultations: Cardiology - Dr. Darling Brief History of Present Illness: 31yo M , PMH: palpitations / chest pain Presents to ED due to sudden onset chest pain while walking to his truck this morning. Associated with nausea, lightheadedness, and shortness of breath. He was not doing any strenous physical activity today / yesterday. Reports ~2 year history of palpitations and similar chest pain episodes. States he has been worked up in [place] and [place] with echo, holter monitor, stress test. He states no definitive diagnosis, but has hear terms such as "cardiomyopathy", " maker", "have the heart of a 89year old". He states he never underwent cardiac catheterization. His mom states she was told he had 70% blockage of something at one point, but unsure of exactly what. He does not take any medication, no over the counter medications, denies drug use, no significant caffeine intake. In the ED, EKG without acute ischemic changes, troponin negative, chest x-ray negative. Patient noted some improvement of symptoms after medication given. Hospital Course: Troponins remained negative. Cardiology was consulted. Patient underwent echocardiogram and stress testing which were both normal. He had resolution of his chest pressure. Unfortunately the hospital ran out of telemetry monitors and patient was not monitored overnight, however, he did not report any symptoms/episodes. Chest x-ray was without any acute process. Concern for possible arrhythmia. On further discussion, his prior event monitor was not complete due to losing connectivity at times. Recommend follow up with Cardiology, to discuss repeat 7 day holter vs event monitor. Vital Signs/Physical Exam: Temp Pulse Resp BP Pulse Ox 97.1 F 64 18 120/60 97 12/08/21 12:00 12/08/21 12:00 12/08/21 12:00 12/08/21 12:12/08/21 12:00 General: Alert, In no apparent distress, Oriented x3 HEENT: EOMI, Sclerae nonicteric Neck: Supple Respiratory: Clear to auscultation bilaterally, Normal air movement Cardiovascular: No edema, Regular rate/rhythm Gastrointestinal: Soft and benign, Non-distended, No tenderness Musculoskeletal: No contractures, No erythema Integumentary: No rashes, No significant lesion Neurological: Normal speech, Normal strength at 5/5 x4 extr, Normal affect Laboratory Data at Discharge: WBC 6.2 K/uL (4.3-10.9) D 12/08/21 04:11 Hgb 14.0 g/dL (13.6-17.9) 12/08/21 04:11 Hct 41.2 % (39.6-49.0) 12/08/21 04:11 Plt Count 180 K/uL (152-406) 12/08/21 04:11 PT 11.1 SECONDS (9.5-12.5) 12/07/21 10:00 INR 1.01 12/07/21 10:00 Sodium 139 mmol/L (136-145) 12/08/21 04:11 Potassium 4.1 mmol/L (3.5-5.1) 12/08/21 04:11 BUN 12 mg/dL (7-18) 12/08/21 04:11 Creatinine 1.14 mg/dL (0.55-1.3) 12/08/21 04:11 Glucose 100 mg/dL (74-106) 12/08/21 04:11 Magnesium Cancelled 12/08/21 05:04 Total Bilirubin 0.7 mg/dL (0.2-1.0) 12/07/21 10:00 AST 19 U/L (15-37) 12/07/21 10:00 ALT 36 U/L (12-78) 12/07/21 10:00 Alkaline Phosphatase 65 U/L (45-117) 12/07/21 10:00 Triglycerides 121 mg/dL (<150) 12/07/21 15:50 Cholesterol 135 mg/dL (<200) 12/07/21 15:50 HDL Cholesterol 32 mg/dL (40-60) L 12/07/21 15:50 Cholesterol/HDL Ratio 4.22 12/07/21 15:50 Home Medications: NK [No Home Meds] 12/07/21 Followup: NONE,NONE [Primary Care Provider] - Time spent managing pt's care (in minutes): 45
--- NOTE | 2021-12-09 14:30 | CON ---
Date of Consultation: 12/08/2021 Reason For Consultation: Atypical chest pain. History Of Present Illness: The patient is 31. Reports a history of some heart disease back in the days with what appeared to be a negative workup in [place], [place]. Came in with a sudden episode of shortness of breath, chest pain radiating to both arms and lasted a minute or 2. He had some palpit ations. He had some diaphoresis. He had some dizziness. He had some indigestion. Denies nausea, v omiting, or syncope. Has had similar episode in the past with negative workup, but no stress test. Workup so far is all negative. EKG is normal. Allergies: HE IS ALLERGIC TO CODEINE. Past Medical History: Negative. Past Surgical History: Negative. Review of Systems: Negative. Social History: Negative. Family History: Noncontributory. Physical Examination: Normal by Dr. Ojeda in emergency room. Diagnostic Data: Within normal limits and HDL was 32 with LDL was 79 with a cholesterol of 135. He was COVID negative. The patient has a normal echo and a normal stress test. Assessment And Plan: Atypical chest pain, palpitation. I think it will be reasonable for Mr. Meka bermeo to go home. His symptoms may have been secondary to an arrhythmia. I think he should have an out patient 7-day event monitor and see me in the near future. The case was discussed with Dr. Ojeda. No medica tion needed at this point. MAHSA/TRISTAN Voice ID: [id number] Report ID: [id number]
== END 2021-12-08 13:37 | disposition home or self-care (01) ==
LOC: ER 09:49 → ERHOLD 13:06 → 2ND 17:47
PROVIDERS: ADMIT Hospitalist; ATTEND Hospitalist
DX: R07.89 Other chest pain (principal); R00.2 Palpitations; R06.02 Shortness of breath; E83.42 Hypomagnesemia; R61 Generalized hyperhidrosis; R42 Dizziness and giddiness; K30 Functional dyspepsia; Z88.5 Allergy status to narcotic agent; Z20.822 Contact with and (suspected) exposure to COVID-19
CPT/HCPCS: 96365; 96361; 93005; 93017; 93306; 85025 ×2; 80048 ×2; 36415; 83735 ×2; 85610; 80061; 80076; 84484 ×3; 83880; 71045; 94760 ×2; 78452; 96375; 96372; 99285; 96366; U0003; J1650 ×2; J3475; J2785; J7030; J2405; A9500; G0378 ×3

== ENCOUNTER 2022-10-10 06:53 | Day surgery (SDC) | payer BC ==
[2022-10-06 13:40] LABS: Absolute Lymphocytes (CBC) 2.1 K/uL (0.7-4.9); Hematocrit 43.7 % (39.6-49.0); Lymphocytes % 24.3 % (15.3-44.8); MCV 86.4 fL (80-100); MPV 8.3 fL (7.6-11.3); RBC Red Blood Cell Count 5.06 M/uL (4.33-5.43)
[2022-10-06 13:54] LABS: Potassium 4.1 mEq/L (3.5-5.1)
[2022-10-10] MEDS ORDERED: Ringers Lactate 1,000 ML IV ONE (07:24)
[2022-10-10] MEDS ORDERED: CEFAZOLIN SODIUM 2 GM/VIAL ONE (07:24)
[2022-10-10 07:49] VITALS: O2SAT 100
[2022-10-10] MEDS ORDERED: propofoL 200 MG/20 ML VIAL IV ONE (08:47)
[2022-10-10] MEDS ORDERED: FENTANYL CITR 100 MCG/2 ML ONE (08:47)
[2022-10-10] MEDS ORDERED: LIDOCAINE 2% MPF 5 ML VIAL ONE (08:48)
[2022-10-10] MEDS ORDERED: MIDAZOLAM HCL 2 MG/2 ML INJ ONE (08:48)
[2022-10-10] MEDS ORDERED: ONDANSETRON 4 MG/2 ML VIAL ONE (08:50)
[2022-10-10] MEDS ORDERED: BUPIVACAINE 0.5% PF 10 ML VIAL ONE (09:00)
[2022-10-10] MEDS ORDERED: LIDOCAINE 1% MPF 10 ML AMPULE ONE (09:01)
[2022-10-10] MEDS ORDERED: TRIAMCINOLONE ACETON 40 MG/ML VIAL ONE ×3 (09:01→09:22)
[2022-10-10 10:43] VITALS: BP 138/78; TEMP 98.9
--- NOTE | 2022-10-10 11:15 | RAD REPORT ---
EXAM DESCRIPTION: RAD - Fluoroscopy <1 Hour - 10/10/2022 11:10 am CLINICAL HISTORY: SI JOINT INJEC- LEFT COMPARISON: Fluoroscopy <1 Hour dated 09/05/2022 FINDINGS: Fluoroscopy time: 0.1 minutes
== END 2022-10-10 10:15 | disposition home or self-care (01) ==
LOC: OR 06:53
PROVIDERS: ATTEND Orthopaedic Surgery
PROC: 3E0U3BZ Introduction of Anesthetic Agent into Joints, Percutaneous Approach (ICD-10-PCS; 2022-10-10)
PROC: 3E0U33Z Introduction of Anti-inflammatory into Joints, Percutaneous Approach (ICD-10-PCS; principal; 2022-10-10 08:00)
DX: M46.1 Sacroiliitis, not elsewhere classified (principal)
CPT/HCPCS: 85025; 80048; 36415; 76000; 27096; J2704; J3301 ×2; J2001; J2250; J3010; J2405; J7120; Q9967

== ENCOUNTER 2022-11-25 20:12 | Emergency (ER) | payer BC ==
--- OUTSIDE RECORDS SUMMARY | 2022-11-25 20:15 | XMS REPORT | Continuity of Care Document ---
:1990 Author Organization [facility] t Address [address] [place] [address] [place] [id number] Care Team Providers Name Role Phone Asked, No Pcp Primary Care Physician Unavailable NILAM KIM Attending Clinician Unavailable ANDREW Attending Clinician Unavailable Bernard Ramos Attending Clinician [phone] LYLA KIM Attending Clinician Unavailable FRAN KNOX Attending Clinician Unavailable Roxie Muller Attending Clinician Unavailable Physician, No Primary or Family Admitting Clinician Unavailhilary MORALES Admitting Clinician Unavailable Roxie Muller Admitting Clinician Unavailable Payers Payer Name Policy Type Policy Number Effective Date Expiration Date S jeremiah [place] [id number] 2021 00:00:00 [place] ([place]) Problems This patient has no known problems. Allergies, Adverse Reactions, Alerts Allergy Allergy Status Severity Reaction(s) Onset Inactive Treating Comm ents Source Name Type Date Date Clinician Morphine Propensi Active Other (See coded Me thodi ty to Comments) [address] st adverse 00:00: Hospita reaction 00 l s to drug morphine DA Active U unresponsive HC A 1-16 [facility] [place] No Known DA Active U [facility] Allergie 07-04 Clear s 00:00: [place] 00 [facility] morphine DA Active U [facility] 07-04 Clear 00:00: [place] 00 [facility] No Known DA Active U [facility] Contrast 07-10 Clear Allergie 00:00: [place] [facility] No Known DA Active U [facility] Drug 07-10 Clear Allergie 00:00: [place] [facility] No Known DA Active U [facility] Food 07-10 Clear Allergie 00:00: [place] [facility] No Known DA Active U [facility] Other 07-10 Clear Allergie 00:00: [place] [facility] Social History Social Habit Start Date Stop Date Quantity Comments Source [facility] History of Social 2020-11-03 2020-11-[address] function 00:00:00 00:00:00 Hospital Tobacco use and 2020-09-15 2020-09-15 Smokeless [facility] 00:00:00 00:00:00 tobacco non-user Hospital Sex Assigned At [birth year] [facility] Smoking Status Start Date Stop Date Source Never Smoker [facility] Medications Ordered Filled Start Stop Current Ordering Indication Dosage Frequency Signature Comments Components Source Medication Medication Date Date Medication? Clinician (SIG) Name Name metoprolol Yes 25mg QD Take 25 mg M ethodi succinate 3-[address] XL 09:11: daily. 1/2 Hospita (TOPROL-XL) 42 tab Qhs l 25 mg 24 hr tablet acetaminoph acetaminoph No acetaminop [place] en 300 en 300 hen 300 [facility] mg-codeine mg-codeine mg-codeine ty 30 mg 30 mg 30 mg Hospita tablet TAKE tablet TAKE tablet l TWO (2) TWO (2) TAKE TWO Clini cs TABLET(S) TABLET(S) (2) BY MOUTH BY MOUTH TABLET(S) EVERY SIX EVERY SIX BY MOUTH HOURS HOURS EVERY SIX NEEDED FOR NEEDED FOR HOURS PAIN. PAIN. NEEDED FOR PAIN. cyclobenzap cyclobenzap No cyclobenza [place] rine 5 mg rine 5 mg timbo 5 mg Communi tablet TAKE tablet TAKE tablet ty ONE (1) ONE (1) TAKE ONE Hospi ta TABLET(S) TABLET(S) (1) l BY MOUTH BY MOUTH TABLET(S) Cl inics THREE TIMES THREE TIMES BY MOUTH A DAY A DAY THREE NEEDED FOR NEEDED FOR TIMES A MUSCLE MUSCLE DAY SPASMS. SPASMS. NEEDED FOR MUSCLE SPASMS. dexamethaso dexamethaso No dexamethas [place] ne 2 mg ne 2 mg one 2 mg Commu ni tablet TAKE tablet TAKE tablet ty ONE (1) ONE (1) TAKE ONE Hospi ta TABLET(S) TABLET(S) (1) l BY MOUTH BY MOUTH TABLET(S) Cl inics THREE TIMES THREE TIMES BY MOUTH A DAY. A DAY. THREE TIMES A DAY. diazepam 5 diazepam 5 No diazepam 5 [place] mg tablet mg tablet mg tablet Communi TAKE ONE TAKE ONE TAKE ONE ty (1) (1) (1) Hospita TABLET(S) TABLET(S) TABLET(S) l BY MOUTH BY MOUTH BY MOUTH Cli nics EVERY EIGHT EVERY EIGHT EVERY HOURS HOURS EIGHT NEEDED FOR NEEDED FOR HOURS PAIN. PAIN. NEEDED FOR PAIN. ibuprofen ibuprofen No ibuprofen [place] 600 mg 600 mg 600 mg Commun[facility] tablet TAKE tablet TAKE tablet ty ONE (1) ONE (1) TAKE ONE Hospi ta TABLET(S) TABLET(S) (1) l BY MOUTH BY MOUTH TABLET(S) Cl inics EVERY 6 EVERY 6 BY MOUTH HOURS HOURS EVERY 6 NEEDED FOR NEEDED FOR HOURS PAIN. PAIN. NEEDED FOR PAIN. lidocaine 5 lidocaine 5 No lidocaine [place] % topical % topical 5 % Commu ni patch APPLY patch APPLY topical ty 1 PATCH BY 1 PATCH BY patch Ho spita TOPICAL TOPICAL APPLY 1 l ROUTE ONCE ROUTE ONCE PATCH BY Clinics DAILY (MAY DAILY (MAY TOPICAL WEAR UP TO WEAR UP TO ROUTE ONCE 12HOURS.) 12HOURS.) DAILY (MAY WEAR UP TO 12HOURS.) naproxen naproxen No 1 BID naproxen Swe johann 500 mg 500 mg 500 mg Communi tablet Take tablet Take tablet ty 1 tablet 1 tablet Take 1 Hospi ta twice a day twice a day tablet l by oral by oral twice a Clinic s route as route as day by needed for needed for oral route 15 days. 15 days. as needed for 15 days. prednisone prednisone No prednisone [place] 20 mg 20 mg 20 mg [facility] tablet TAKE tablet TAKE tablet ty TWO (2) TWO (2) TAKE TWO Hospi ta TABLET(S) TABLET(S) (2) l BY MOUTH BY MOUTH TABLET(S) Cl inics ONCE A DAY ONCE A DAY BY MOUTH FOR 5 DAYS. FOR 5 DAYS. ONCE A DAY FOR 5 DAYS. tizanidine tizanidine No tizanidine [facility] 4 mg tablet 4 mg tablet 4 mg C ommuni Take 1-2 Take 1-2 tablet ty tablets TID tablets TID Take 1-2 Hospita PRN muscle PRN muscle tablets l spasms spasms TID PRN Clinics muscle spasms Vital Signs Vital Name Observation Time Observation Value Comments Source BP Diastolic 2022-01-11 00:00:00 79 mm[Hg] [facility] Height 2022-01-11 00:00:00 73 [in_i] [facility] BMI (Body Mass 2022-01-11 00:00:00 29.9 kg/m2 [facility] Index) [facility] BP Systolic 2022-01-11 00:00:00 131 mm[Hg] [facility] s Body Weight 2022-01-11 00:00:00 3632 [oz_av] [facility] s Procedures This patient has no known procedures. Plan of Care Planned Activity Planned Date Details Comments Source Future Scheduled 2022-09-19 [facility] Test 07:32:41 screening (procedure) [code = 974706976] Future Scheduled 2022-09-19 COVID-19 VACCINE (3 [facility] Test 07:32:41 - Booster for Pfizer series) [code = COVID-19 VACCINE (3 - Booster for Pfizer series)] Future Scheduled 2022-09-19 INFLUENZA VACCINE [facility] Test 07:32:41 [code = INFLUENZA VACCINE] Encounters Start End Encounter Admission Attending Care Care Encounter Source Date/Time Date/Time Type Type Clinicians Facility Department ID 2022-11-24 2022-11-24 Outpatient DARRELL KIM [facility] [id number] [facility] 17:15:00 17:15:00 NILAM 59 [facility] 2022-11-24 2022-11-24 Outpatient DARRELL BRAN [facility] [id number] [facility] 10:24:00 10:24:00 NILAM 24 [facility] s [facility] 2022-01-11 2022-01-11 Outpatient SISSON_C [facility] [id number] [place] 00:00:00 00:00:00 0726 Commun i ty [facility]ospita [facility] 2022-01-11 2022-01-11 [id number]:00 00:00:00 Bernard [id number] 2022-01-11 2022-01-11 [facility] [place] 00:00:00 00:00:00 Rachel [facility] 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 s [address], [facility] [address], [place], [place] MSN, [employer] [id number] , Ph. 2022-01-04 2022-01-04 Outpatient SISSON_C [facility] [id number] [place] 09:54:00 09:54:00 0719 Commun i ty Hospita l [facility] 2021-10-20 2021-10-20 Outpatient JUDY, [facility] [id number] [place] 00:00:00 00:00:[address] 2020-11-03 2020-11-03 Outpatient LISETTE [facility] [id number] [place] 00:00:00 00:00:00 FRAN [address] 2020-09-16 2020-09-16 Outpatient LISETTE [facility] [id number] [place] 00:00:00 00:00:00 FRAN [address] 2020-09-16 2020-09-16 Outpatient LISETTE [facility] 2100 [id number] [place] 00:00:00 00:00:00 FRAN 666 Method i 2020-09-16 2020-09-16 Outpatient LISETTE [facility] [id number] [place] 00:00:00 00:00:00 FRAN 812 Method i 2020-09-15 2020-09-15 Outpatient LISETTE [facility] 2100 [id number] [place] 00:00:00 00:00:00 FRAN 939 Method i 2018-07-04 2018-07-06 Inpatient [facility]AN [facility] [id number] [facility] 19:34:00 11:24:[address] Results Test Description Test Time Test Comments Results Result [facility] e Comments - XR L-SPINE 2022-11-24 4+VIEWS 00:00:00 [facility] 1990 Sex: M Patient Name: ROSANNE WILD Unit No: [id number] EXAMS: CPT CODE: [id number] XR L-SPINE 4+VIEWS 44730 PROCEDURE INFORMATION: Exam: XR Lumbosacral Spine Exam date and time: 11/24/2022 10:35 AM Age: 32 years old Clinical indication: Injury or trauma; Other: Possible injury; Sprain or strain, lumbar ligaments; Injury date: 11/24/22; Injury details: PT bent over changing a diaper severe pain left lower back; Prior surgery; Surgery date: 6+ months; Surgery type: T lift mar 15, 2022; Patient HX: PT was scheduled for fusion of si joints operation postponed at this time; Additional info: Strain of muscle, fascia and tendon of lower back TECHNIQUE: Imaging protocol: Radiologic exam of the lumbosacral spine. Views: 4 or 5 views. AP Lateral Oblique COMPARISON: CTA ABD PEL W CONT 07/04/2018 6:21 PM FINDINGS: Bones/joints: Posterior interbody fusion at L5-S1 with intact surgical hardware. Normal vertebral body height and alignment. No pathologic motion with flexion or extension. Disc spaces are preserved. Soft tissues: No radiographically apparent paraspinous abnormality. Notes: If there is further concern, MRI, or CT lumbar myelogram if the patient is unable to have an MRI, should be considered for more complete assessment. IMPRESSION: No acute findings. at 1145 Reported and signed by: Ezequiel Garcia MD CC: Technologist: Mackenzie Willingham RT, CT Trnscrbd D/ (0312) GCD.CPS Orig Print D/T: S: 11/24/2022 ([id number]) [facility] NAME: ROSANNE WILD Radiology Department PHYS: UNDEFINED - Undefined Provider [address] : 1990 AGE: 32 SEX: M [place], [place] [address] LOC: MAHI PHONE #: [phone] EXAM DATE: 11/24/2022 STATUS: REG CLI FAX #: [phone] RAD NO: Page 1 Signed Report CALPROTECTIN FECAL 2018-07-12 14:16:00 Test Item Value Reference Range Interpretation Comme nts CALPROTECTIN FECAL (test code 158 ug/g 0-120 H Concentration Interpretation = CALFECAL) Follow-Up<16 - 50 ug/g Normal None>50 -120 ug/g Ivy mayoine Re-evaluate in 4-6 weeks>120 ug/g Abnormal Repeat as clinically nora catedConcentration Interpretation Follow-Up<16 - 50 ug/g Normal None>50 -120 ug/g Borderline Re-evaluate in 4-6 weeks >120 ug/g Abnormal Repeat as clinically indicatedPerfor med At: [facility] [address] [id number] can Hernandez MD Ph:[phone] eviously reported result: 158 ug/ gEdited by: INFCE on 07/12/18:[id number] 1416: CALPROTECTIN FE previously reported as: 158 Concentrati on Interpretation Follow-Up <16 - 50 ug/g Normal None >50 -120 ug/g Borde rline Re-evaluate in 4-6 weeks >120 ug/g Abnormal Repeat as clinically nora cated CALPROTECTIN [id number] 13:07:00 Test Item Value Reference Range Interpretation Comments CALPROTECTIN FECAL 158 Concentra tion (test code = CALFECAL) Inter pretation Follow-Up<16 - 50 ug/g Normal None>50 -120 ug/g Borderline Re-e valuate in 4-6 weeks>120 u g/g Abnormal Repeat as clinically nora cated SED RATE [id number] 09:16:00 Test Item Value Reference Range Interpretation Comments SED RATE WESTERGREN (test code = 6 mm/hr 0-15 N SEDW) C REACTIVE [id number] 08:05:00 Test Item Value Reference Range Interpretation Comments C REACTIVE PROTEIN (test code = 30.0 MG/L 0.0-2.9 H CRP) Notes Date/Time Note Provider Source 2018-07-06 10:11:00-00:00 [facility] Hospitalist Discharge Summary REPORT#:[id number] REPORT STATUS: Signed DATE:07/06/18 TIME: 1011 PATIENT: ROSANNE WILD UNIT #: [id number] ROOM/BED: [address] : [birth year] AGE: 28 SEX: M ATTEND: Jaycob Muller MD ADM AUTHOR: Val Noonan MD * ALL edits or amendments must be made on the el [employer]/computer document * PCP PCP PCP: PCP: No Primary or Family Physician Discharge to: home General Information Date of admission: Observation Start Date: Date of admission: 07/04/18 Discharge date: 07/06/18 Discharge diagnosis: Gastroenteritis Abdominal Pain Nausea Diarrhea Hospital course: 28 year old male with abdominal pain. Gastroente rology was consulted. It was felt to be gastorenteritis with abdominal spasm. His pain was controlled with Bentyl. Consultants: gastroenterology Pt. condition on discharge: improved Allergies: Allergies: morphine (Coded, unresponsive, 07/04/18) Med Rec Med Rec Discharge meds: Start taking the following new medications: DICYCLOMINE (BENTYL) 20 MG TAB 20 MILLIGRAM ORAL THREE TIMES A DAY. as needed for abdominal pain, spasm Qty = 60 No Refills Discharge Instructions Diet: regular Oral fluid restriction: No Weight monitor: Not Required Activity: as tolerated Prescriptions: on chart Return to work/school: Yes Date to return: 07/09/18 Restrictions upon return: No Discharge management: less than 30 mins, face to face encounter Time spent: Time spent with pt: 15 minutes or more Follow-up Appointments PCP: PCP: No Primary or Family Physician Follow up timeframe: In 1-2 weeks Special instructions: call for appointment. Attending Physician: Attending Physician: Roxie Muller MD Consulting provider 1: Provider 1: Lynne Weaver MD Specialty: GASTROENTEROLOGY Follow up timeframe: NEEDED Special instructions: MAKE APPOINTMENT FOR ONGOING ABDOMINAL PAIN. Objective General VS/I O: Vital Signs: Date Time Temp Pulse Resp B/P B/P Pulse O2 O2 F low FiO2 Mean Ox Delivery Rate 07/06 0812 36.7 83 18 128/77 93.8 97 07/06 0418 36.8 77 14 109/69 82.6 95 Room air 07/05 2358 36.8 75 18 124/75 91.6 99 Room air 07/05 1926 37.1 83 18 134/74 93.9 98 Room air 07/05 1654 37.0 64 18 110/73 85.6 98 Room air 07/05 1231 36.7 56 18 110/68 82.0 98 Room air 24 hour I O ending at 0700: 07/06 0700 07/05 1900 Intake Total 1340.00 1225.00 Output Total Balance 1340.00 1225.00 Intake, IV 1100.00 1225.00 Intake, Oral 240 Medications: Active Meds + DC'd Last 24 Hrs Dicyclomine HCl 20 MG TID PO Ketorolac Tromethamine 30 MG Q6H PRN PRN IV Ondansetron HCl 4 MG Q4H PRN PRN IV Piperacillin Sod/Tazobactam Sod 3.375 GM Q8H IV Sodium Chloride 100 ML Sodium Chloride 1,000 ML .Q8H IV Acetaminophen 1,000 MG Q6H PRN PRN PO Physical Exam General appearance: alert, awake, oriented, no a cute distress, pleasant, conversational, mental status normal, no respira tory distress Head/Eyes: atraumatic, clear cornea, nor mal conjunctiva/sclera, normocephalic, PERRLA ENT: moist mucosal membranes, normal nose Neck: non-tender, supple/no meningismus, no JVD, no masses or swelling Cardiovascular: normal heart sounds, regular rat e rhythm, no heave, no rub Respiratory: aerating well, clear to auscultatio n, symmetric expansion, no distress Abdomen: tenderness, normal bowel sounds , soft, no distention, no guarding, no rebound Extremities: moves all, normal range of motion, no clubbing, no cyanosis, no edema Neuro/HOSPITAL CARRIER: alert, oriented X 3, CNII-XII intact, normal speech, no motor deficits Results Findings/Data: Laboratory Tests 07/06 449 Chemistry C-Reactive Protein (0.0 - 2.9 MG/L) 30.0 H Laboratory Tests 07/06 449 Hematology ESR Westergren (0 - 15 mm/hr) 6 Results: labs reviewed, vital signs stable, curr ent med profile rev'd Quality MSSA Bacteremia Active Infxn Pt was admitted with MSSA (methicillin-susceptib le Staph aureus): No Medications Current medication review: I attest that the foregoing medication list in [facility] medical record is true, accurate, and complete to the best of my knowled ge. BMI Screening > 25 or < 18.5 BMI status/follow-up: abnl BMI, pt to F/U w/PCP Tobacco Use/Counseling Tobacco use/counseling: non tobacco user HTN Screening/Follow-up B/P assess/follow-up: normal B/P, no f/u req at 0903 RPT #:[id number] END OF REPORT 2018-07-05 17:01:00-00:00 [facility] Hospitalist Progress Note REPORT#:[id number] REPORT STATUS: Signed DATE:07/05/18 TIME: 1701 PATIENT: ROSANNE WILD UNIT #: [id number] ROOM/BED: [facility] : [birth year] AGE: 28 SEX: M ATTEND: Jaycob Muller MD ADM AUTHOR: Val Noonan MD * ALL edits or amendments must be made on the [employer] document * Subjective HPI: Complaining of cramping abdominal pain. Objective General VS/I O: Vital Signs: Date Time Temp Pulse Resp B/P B/P Pulse O2 O2 Fl ow FiO2 Mean Ox Delivery Rate 07/05 1654 37.0 64 18 110/73 85.6 98 Room air 07/05 1231 36.7 56 18 110/68 82.0 98 Room air 07/05 0855 36.6 61 18 91/56 67.4 98 Room air 07/05 0443 37.1 86 18 120/75 89.9 99 07/04 2311 37.9 116 18 115/65 82.1 95 07/04 2037 37.8 114 18 124/66 85.4 94 07/04 1940 36.9 07/04 1929 103 18 143/77 99 97 Room air 07/04 1828 109 20 155/73 100 99 07/04 1755 118 14 149/79 102 100 Non [id number] rebreather mask 24 hour I O ending at 0700: 07/05 0700 07/04 1900 Intake Total 1510.00 Output Total Balance 1510.00 Intake, IV 1450.00 Intake, Oral 60 Number 2 Bowel Movements Number Voids 3 Patient 104.4 kg 99.091 kg Weight Weight Bed scale Standing scale Measurement Method Medications: Active Meds + DC'd Last 24 Hrs Metronidazole/Sodium Chloride 100 ML Q8H IV (CAN ) Dicyclomine HCl 20 MG TID PO Hydromorphone HCl 0.5 MG ONCE ONE IV (DC) Ketorolac Tromethamine 30 MG Q6H PRN PRN IV Ondansetron HCl 4 MG Q4H PRN PRN IV Piperacillin Sod/Tazobactam Sod 3.375 GM Q8H IV Sodium Chloride 100 ML Sodium Chloride 1,000 ML .Q8H IV Diatrizoate Meglum/Diatrizoate Sod 10 ML .STK-ME D ONE PO (DC) Iopamidol 100 ML .STK-MED ONE IV (DC) Acetaminophen 1,000 MG Q6H PRN PRN PO Ondansetron HCl 4 MG Q6H PRN PRN IV (DC) Sodium Chloride 1,000 ML .Q6H40M IV (DC) Sodium Chloride 0 ASDIR PRN IV (DC) Ceftriaxone Sodium 1,000 MG X1ED STA IV (DC) Sodium Chloride 100 ML Metronidazole/Sodium Chloride 100 ML X1ED STA IV (DC) Sodium Chloride 1,000 ML X1ED STA IV (DC) Naloxone HCl 0 .STK-MED ONE IV (DC) Naloxone HCl 2 MG X1ED STA IV (DC) Ondansetron HCl 8 MG ONCE PRN PO (DC) Sodium Chloride 0 ASDIR PRN IV (DC) Physical Exam General appearance: alert, awake, orient ed, no acute distress, conversational, mental status normal, no respiratory distress Head/Eyes: atraumatic, clear cornea, nor mal conjunctiva/sclera, normocephalic, PERRLA ENT: moist mucosal membranes, normal nose Neck: non-tender, supple/no meningismus, no JVD, no masses or swelling Cardiovascular: normal heart sounds, regular rat e rhythm, no heave, no rub Respiratory: aerating well, clear to auscultatio n, symmetric expansion, no distress Abdomen: tenderness, normal bowel sounds , soft, no distention, no guarding, no rebound Extremities: moves all, normal range of motion, no clubbing, no cyanosis, no edema Neuro/HOSPITAL CARRIER: alert, oriented X 3, CNII-XII intact, normal speech, no motor deficits Results Findings/Data: Laboratory Tests 07/05 07/04 07/04 07/04 0450 1821 1817 1814 Chemistry POC Sodium (134 - 147 MMOL/L) 139 Sodium (134 - 147 mEq/L) 141 POC Potassium (3.4 - 5.0 MMOL/L) 3.6 Potassium (3.4 - 5.0 mEq/L) 4.1 POC Chloride (100 - 108 MMOL/L) 103 Chloride (100 - 108 mEq/L) 110 H Carbon Dioxide (21 - 33 mEq/L) 22 22.0 Anion Gap (0 - 20) 13 POC BUN (7 - 18 MG/DL) 14 BUN (7 - 18 mg/dL) 16 Creatinine (0.6 - 1.3 mg/dL) 1.2 POC Creatinine (0.6 - 1.3 MG/DL) 1.1 Glomerular Filtr Rate (110 - 120) 73.2 L Estimated GFR (MDRD) (ML/MIN) 86 Glucose (70 - 110 mg/dL) 79 POC Glucose (70 - 110 MG/DL) 97 POC Lactic Acid (0.90 - 1.70 MMOL/L) 1.3 Calcium (8.0 - 10.5 mg/dL) 8.4 POC Ioniz Calcium Aimee (1.12 - 1.32 MG/DL) 1.12 Rapid Troponin I (0.00 - 0.08 ng/mL) 0.00 Laboratory Tests 07/05 07/04 0450 1800 Hematology WBC (4.5 - 11.0 x10 3/uL) 6.94 11.90 H RBC (4.00 - 5.60 x10 6/uL) 4.75 5.18 Hgb (12.5 - 16.9 g/dL) 13.8 14.9 Hct (37.5 - 50.7 %) 43.1 44.3 MCV (81.0 - 99.0 fL) 90.7 85.5 MCH (27.0 - 33.0 pg) 29.1 28.8 MCHC (33.0 - 37.0 g/dL) 32.0 L 33.6 RDW (11.5 - 14.5 %) 12.4 12.3 Plt Count (150 - 400 x10 3/uL) 190 260 MPV (7.0 - 9.0 fL) 11.3 H 10.7 H Neut % (Auto) (56.0 - 77.0 %) 74.7 82.1 H Lymph % (Auto) (14.0 - 32.0 %) 13.3 L 9.4 L Custer % (Auto) (4.8 - 9.0 %) 11.0 H 7.7 Eos % (Auto) (0.3 - 3.7 %) 0.3 0.1 L Baso % (Auto) (0.0 - 2.0 %) 0.3 0.3 Neut # (Auto) (2.0 - 7.6 x10 3/uL) 5.19 9.77 H Lymph # (Auto) (1.0 - 3.8 x10 3/uL) 0.92 L 1.12 Custer # (Auto) (0.1 - 0.8 x10 3/uL) 0.76 0.92 H Eos # (Auto) (0.0 - 0.2 x10 3/uL) 0.02 0.01 Baso # (Auto) (0.0 - 0.2 x10 3/uL) 0.02 0.03 Abs Immat Gran (auto) (0.00 - 0.03 x10 3/uL) 0. 03 0.05 H Add Manual Diff NO NO Immature Gran % (0.0 - 2.0 %) 0.4 0.4 Nucleated RBC % (0 - 0 %) 0.0 0.0 Nucleated RBCs # (Man) (0.0 - 0.1 x10 3/uL) 0.0 0 0.00 Microbiology Date/Time Procedure - Status Source Growth 07/05 0450 Stool Leukocytes - COMP STOOL 07/04 2200 MRSA DNA Surveillance Screen - COMP NASAL Radiology data: Recent Impressions: RADIOLOGY - XR CHEST 1 V 07/04 1808 Report Impression - Status: SIGNED Entered: 07/04/2018 1814 IMPRESSION: No active infiltrate. SL:01 Impression By: Amadou Koo CAT SCAN - CTA ABD PEL W CONT 07/04 1817 Report Impression - Status: SIGNED Entered: 07/04/2018 1855 IMPRESSION: CHEST: 1. Normal thoracic aorta. No acute cardiopulmona ry process. 2. There is a 4 mm noncalcified right upper lobe pulmonary nodule. Pulmonary nodules this size in patients less alexi n 35 years of age are statistically most likely benign. Unless there i s a high risk for developing pulmonary malignancy, no additional f ollow-up would be recommended. If there is a high risk, consider f ollow-up CT chest in 12 months to evaluate long-term stability. ABDOMEN AND PELVIS: 1. Normal abdominal aorta. 2. There is segmental mucosal thickening of the sigmoid colon. This is possibly due to underdistention and bowel spa sm but I cannot exclude mild segmental inflammation. 3. There are several nonspecific mildly prominen t shotty lymph nodes in the mesenteric root. These may be idiopathic, reactive, due to mesenteric adenitis, or a lymphoproliferative pr ocess. Impression By: Ra Dean M.D. CAT SCAN - CT ANGIO CHEST 07/04 1818 Report Impression - Status: SIGNED Entered: 07/04/2018 0103 IMPRESSION: CHEST: 1. Normal thoracic aorta. No acute cardiopulmona ry process. 2. There is a 4 mm noncalcified right upper lobe pulmonary nodule. Pulmonary nodules this size in patients less alexi n 35 years of age are statistically most likely benign. Unless there i s a high risk for developing pulmonary malignancy, no additional f ollow-up would be recommended. If there is a high risk, consider f ollow-up CT chest in 12 months to evaluate long-term stability. ABDOMEN AND PELVIS: 1. Normal abdominal aorta. 2. There is segmental mucosal thickening of the sigmoid colon. This is possibly due to underdistention and bowel spa sm but I cannot exclude mild segmental inflammation. 3. There are several nonspecific mildly prominen t shotty lymph nodes in the mesenteric root. These may be idiopathic, reactive, due to mesenteric adenitis, or a lymphoproliferative pr ocess. Impression By: Ra Dean M.D. Results: labs reviewed, vital signs stable, curr ent med profile rev'd Diagnosis, Assessment Plan Free Text A P: 28 year old male with abdomina pain. Gastroenteritis Abdominal Pain Nausea Diarrhea Plan: - Bentyl for abdominal spasm, likely cause of pa in - On Zosyn - Gastroenterology consulted Consultants: gastroenterology Code status: full code Plan discussed with: patient Quality MSSA Bacteremia Active Infxn Pt was admitted with MSSA (methicillin-susceptib le Staph aureus): No Medications Current medication review: I attest that the foregoing medication list in t he medical record is true, accurate, and complete to the best of my knowled ge. BMI Screening > 25 or < 18.5 Patient's BMI: Current BMI: 30.4 BMI status/follow-up: abnl BMI, pt to F/U w/PCP Tobacco Use/Counseling Tobacco use/counseling: non tobacco user HTN Screening/Follow-up B/P assess/follow-up: normal B/P, no f/u req at 0901 [facility] #:[id number] END OF REPORT 2018-07-05 13:10:00-00:00 [facility] ([facility]) GE Consultation Note REPORT#:[id number] REPORT STATUS: Signed DATE:07/05/18 TIME: 1310 PATIENT: ROSANNE WILD UNIT #: [id number] ROOM/BED: [place] [id number] : 92 AGE: 28 SEX: M ATTEND: Jaycob Muller MD ADM AUTHOR: Tristan Doyle * ALL edits or amendments must be made on the [employer]/computer document * History of Present Illness Requesting clinician: Renzo Reason for consult: colitis Chief complaint: abdominal pain HPI: This is a 28-year-old male who presents to the E D with a three day history of diffuse abdominal pain that is crampy/spasming i n nature. The pain is now primariliy in the lower quad rants. Patient reports some nausea and diarrhea but no vomiting. He was having diarrhea 6-7 times a day but no bleeding was noted with these bowel movements. No previous episodes of bloody diarrhea noted in the past. He denieis any family history of IBD. Hes had two episodes of diarrhea today. No recent antibiotics , possible contaminated foods, or sick contacts that he is aware of. Pain is now a 2/10 but on arriva l was a 10/10. History - Adult longitudinal Additional family history: non-contributory Alcohol use: Denies EtOH use Drug use: Denies recreational drugs Smoking status for patients 13 years old or olde r: Never Smoker Medications: Home Medications: Medication Dose/Rte/Freq Days Qty Entered Last Max Daily Dose Reviewed No Known Home Medications Current Hospital Medications: Anti-Infective Agents Sig/Bernadette Start time Last Medication Dose Route Stop Time Status Admin Metronidazole/Sodium 100 ML Q8H 07/05 1822 CAN Chloride IV 07/06 1121 (metroNIDAZOLE 500MG/ NS 100ML) Piperacillin Sod/ 3.375 GM Q8H 07/04 2130 AC Tazobactam Sod IV 01/30 2129 1242 (ZOSYN 3.375GM) Sodium Chloride 100 ML (SODIUM CHLORIDE 0.9% 100 ML) Ceftriaxone Sodium 1,000 MG X1ED STA 07/04 1759 DC 07/04 (ROCEPHIN 1000MG IV 07/04 1828 1931 VIAL) Sodium Chloride 100 ML (SODIUM CHLORIDE 0.9% 100 ML) Metronidazole/Sodium 100 ML X1ED STA 07/04 1759 DC 07/04 Chloride IV 07/04 1858 1822 (metroNIDAZOLE 500MG/ NS 100ML) Autonomic Drugs Sig/Bernadette Start time Last Medication Dose Route Stop Time Status Admin Dicyclomine HCl 20 MG TID 07/05 1500 AC (BENTYL) PO 08/04 1459 Central Nervous System Agents Sig/Bernadette Start time Last Medication Dose Route Stop Time Status Admin Hydromorphone HCl 0.5 MG ONCE ONE 07/05 0515 DC (DILAUDID) IV 07/05 0516 Ketorolac 30 MG Q6H PRN PRN 07/05 0015 AC 07/05 Tromethamine IV 1008 (TORADOL 30 MG) Acetaminophen 1,000 MG Q6H PRN PRN 07/04 1945 AC 07/05 (TYLENOL EXTRA PO 08/03 1943 0532 STRENGTH) Naloxone HCl 0 .STK-MED ONE 07/04 1747 DC (NARCAN) IV Naloxone HCl 2 MG X1ED STA 07/04 1746 DC 07/04 (NARCAN) IV 07/04 1747 1751 Ketorolac 15 MG X1ED STA 07/04 1456 DC 07/04 Tromethamine IV 07/04 1457 1636 (TORADOL) Morphine Sulfate 4 MG X1ED STA 07/04 1456 DC (morphine SULFATE) IV 07/04 1457 1636 Diagnostic Agents Sig/Bernadette Start time Last Medication Dose Route Stop Time Status Admin Diatrizoate Meglum/ 10 ML .STK-MED ONE 07/04 2 043 DC 07/04 Diatrizoate Sod PO 07/04 (GASTROGRAFIN 66-10 SOLUTION) Iopamidol 100 ML .STK-MED ONE 07/04 2043 DC (ISOVUE-300) IV 07/04 Electrolytic, Caloric, And Pedro Luis Sig/Bernadette Start time Last Medication Dose Route Stop Time Status Admin Sodium Chloride 1,000 ML .Q8H 07/04 2130 AC (SODIUM CHLORIDE IV 08/03 212 1242 0.9%) Sodium Chloride 1,000 ML .Q6H40M 07/04 1945 DC 07/04 (SODIUM CHLORIDE IV 07/05 1832 2056 0.9%) Sodium Chloride 1,000 ML X1ED STA 07/04 1759 DC 07/04 (SODIUM CHLORIDE IV 07/04 1858 1822 0.9%) Sodium Chloride 1,000 ML X1ED STA 07/04 1456 DC 07/04 (SODIUM CHLORIDE IV 07/04 1555 1636 0.9%) Eye, Ear, Nose And Throat (Een Sig/Bernadette Start time Last Medication Dose Route Stop Time Status Admin Sodium Chloride 0 ASDIR PRN 07/04 1800 DC (SODIUM CHLORIDE) IV 07/05 1659 Sodium Chloride 0 ASDIR PRN 07/04 1500 DC (SODIUM CHLORIDE) IV 07/05 1356 Gastrointestinal Drugs Sig/Bernadette Start time Last Medication Dose Route Stop Time Status Admin Ondansetron HCl 4 MG Q4H PRN PRN 07/04 2129 AC (ZOFRAN) IV 08/03 2128 Ondansetron HCl 4 MG Q6H PRN PRN 07/04 1945 DC (ZOFRAN) IV 07/05 1832 Ondansetron HCl 8 MG ONCE PRN 07/04 1500 DC (ZOFRAN ODT) PO 08/03 1459 1636 Allergies: Coded Allergies: morphine (unresponsive 07/04/18) Pt reports no significant: past medical history, past surgical history, family history Ambulatory status: Independent Review of Systems Free Text ROS Notes Free Text ROS Notes: Pertinent positives and negatives noted in HPI Objective Physical Exam VS/I O: Last Documented: Result Date Time Pulse Ox 98 07/05 1231 B/P 110/68 07/05 1231 B/P Mean 82.0 07/05 1231 O2 Delivery Room air 07/05 1231 Temp 36.7 07/05 1231 Pulse 56 07/05 1231 Resp 18 07/05 1231 O2 Flow Rate [id number] 07/04 1755 24 hour I O ending at 0700: 07/05 0700 07/04 1900 Intake Total 1510.00 Output Total Balance 1510.00 Intake, IV 1450.00 Intake, Oral 60 Number 2 Bowel Movements Number Voids 3 Patient 104.4 kg 99.091 kg Weight Weight Bed scale Standing scale Measurement Method Medications: Active Meds + DC'd Last 24 Hrs Metronidazole/Sodium Chloride 100 ML Q8H IV (CAN ) Dicyclomine HCl 20 MG TID PO Hydromorphone HCl 0.5 MG ONCE ONE IV (DC) Ketorolac Tromethamine 30 MG Q6H PRN PRN IV Ondansetron HCl 4 MG Q4H PRN PRN IV Piperacillin Sod/Tazobactam Sod 3.375 GM Q8H IV Sodium Chloride 100 ML Sodium Chloride 1,000 ML .Q8H IV Diatrizoate Meglum/Diatrizoate Sod 10 ML .STK-ME D ONE PO (DC) Iopamidol 100 ML .STK-MED ONE IV (DC) Acetaminophen 1,000 MG Q6H PRN PRN PO Ondansetron HCl 4 MG Q6H PRN PRN IV (DC) Sodium Chloride 1,000 ML .Q6H40M IV (DC) Sodium Chloride 0 ASDIR PRN IV (DC) Ceftriaxone Sodium 1,000 MG X1ED STA IV (DC) Sodium Chloride 100 ML Metronidazole/Sodium Chloride 100 ML X1ED STA IV (DC) Sodium Chloride 1,000 ML X1ED STA IV (DC) Naloxone HCl 0 .STK-MED ONE IV (DC) Naloxone HCl 2 MG X1ED STA IV (DC) Ondansetron HCl 8 MG ONCE PRN PO (DC) Sodium Chloride 0 ASDIR PRN IV (DC) Ketorolac Tromethamine 15 MG X1ED STA IV (DC) Morphine Sulfate 4 MG X1ED STA IV (DC) Sodium Chloride 1,000 ML X1ED STA IV (DC) General appearance: awake, oriented HEENT: atraumatic, normocephalic Cardiovascular: normal capillary refill, regular rate rhythm Respiratory: aerating well, no distress Abdomen: tenderness, normal bowel sounds, soft, no distention Extremities: moves all, no cyanosis Musculoskeletal: normal inspection Neuro/HOSPITAL CARRIER: alert, oriented X 3 Skin: dry, intact Results Findings/Data: Laboratory Tests 07/05/18 0450: [Embedded Image Not Available] 07/04/18 1821: [Embedded Image Not Available] 07/04/18 1800: [Embedded Image Not Available] 07/04/18 1640: [Embedded Image Not Available] 07/04/18 1633: [Embedded Image Not Available] Laboratory Tests 07/05 07/04 07/04 07/04 07/04 0450 1821 1817 1814 1640 Chemistry POC Sodium (134 - 147 MMOL/L) 139 140 Sodium (134 - 147 mEq/L) 141 POC Potassium (3.4 - 5.0 MMOL/L) 3.6 4.0 Potassium (3.4 - 5.0 mEq/L) 4.1 POC Chloride (100 - 108 MMOL/L) 103 98 L Chloride (100 - 108 mEq/L) 110 H Carbon Dioxide (21 - 33 mEq/L) 22 22.0 27.0 Anion Gap (0 - 20) 13 POC BUN (7 - 18 MG/DL) 14 15 BUN (7 - 18 mg/dL) 16 Creatinine (0.6 - 1.3 mg/dL) 1.2 POC Creatinine (0.6 - 1.3 MG/DL) 1.1 1.1 Glomerular Filtr Rate (110 - 120) 73.2 L Estimated GFR (MDRD) (ML/MIN) 86 86 Glucose (70 - 110 mg/dL) 79 POC Glucose (70 - 110 MG/DL) 97 93 POC Lactic Acid (0.90 - 1.70 MMOL/L) 1.3 Calcium (8.0 - 10.5 mg/dL) 8.4 POC Ioniz Calcium Aimee (1.12 - 1.32 MG/DL) 1.12 1.21 Rapid Troponin I (0.00 - 0.08 ng/mL) 0.00 07/04 07/04 1633 1633 Chemistry Total Bilirubin (0.0 - 1.0 mg/dL) 0.50 Direct Bilirubin (0.0 - 0.30 MG/DL) 0.10 Indirect Bilirubin (MG/DL) 0.40 AST (15 - 37 IUnit/L) 27 ALT (15 - 65 IUnit/L) 51 Total Alk Phosphatase (20 - 125 IUnit/L) 83 Total Protein (6.4 - 8.2 g/dL) 8.4 H Albumin (3.4 - 5.0 g/dL) 4.50 Lipase (73 - 393 IUnit/L) 128 Procalcitonin (0.00 - 0.05 ng/mL) 0.11 H Laboratory Tests 07/050 1800 1633 Hematology WBC (4.5 - 11.0 x10 3/uL) 6.94 11.90 H 11.27 H RBC (4.00 - 5.60 x10 6/uL) 4.75 5.18 5.80 H Hgb (12.5 - 16.9 g/dL) 13.8 14.9 16.3 Hct (37.5 - 50.7 %) 43.1 44.3 50.8 H MCV (81.0 - 99.0 fL) 90.7 85.5 87.6 MCH (27.0 - 33.0 pg) 29.1 28.8 28.1 MCHC (33.0 - 37.0 g/dL) 32.0 L 33.6 32.1 L RDW (11.5 - 14.5 %) 12.4 12.3 12.2 Plt Count (150 - 400 x10 3/uL) 190 260 274 MPV (7.0 - 9.0 fL) 11.3 H 10.7 H 10.9 H Neut % (Auto) (56.0 - 77.0 %) 74.7 82.1 H 85.5 H Lymph % (Auto) (14.0 - 32.0 %) 13.3 L 9.4 L 7.4 L Custer % (Auto) (4.8 - 9.0 %) 11.0 H 7.7 6.2 Eos % (Auto) (0.3 - 3.7 %) 0.3 0.1 L 0.1 L Baso % (Auto) (0.0 - 2.0 %) 0.3 0.3 0.4 Neut # (Auto) (2.0 - 7.6 x10 3/uL) 5.19 9.77 H 9.64 H Lymph # (Auto) (1.0 - 3.8 x10 3/uL) 0.92 L 1.12 0.83 L Custer # (Auto) (0.1 - 0.8 x10 3/uL) 0.76 0.92 H 0.70 Eos # (Auto) (0.0 - 0.2 x10 3/uL) 0.02 0.01 0.0 1 Baso # (Auto) (0.0 - 0.2 x10 3/uL) 0.02 0.03 0. 04 Abs Immat Gran (auto) (0.00 - 0.03 x10 3/uL) 0. 03 0.05 H 0.05 H Add Manual Diff NO NO NO Immature Gran % (0.0 - 2.0 %) 0.4 0.4 0.4 Nucleated RBC % (0 - 0 %) 0.0 0.0 0.0 Nucleated RBCs # (Man) (0.0 - 0.1 x10 3/uL) 0.0 0 0.00 0.00 Laboratory Tests 07/04 1633 Urines Urine Color (YEL/STRAW) YELLOW Urine Appearance (CLEAR) CLEAR Urine pH (5.0 - 7.0) 6.0 Ur Specific Imperial (1.005 - 1.030) 1.021 Urine Protein (NEGATIVE) NEGATIVE Urine Glucose (UA) (NEGATIVE) NEGATIVE Urine Ketones (NEGATIVE) NEGATIVE Urine Blood (NEGATIVE) NEGATIVE Urine Nitrite (NEGATIVE) NEGATIVE Urine Bilirubin (NEGATIVE) NEGATIVE Urine Urobilinogen (0.2 - 1.0 mg/dL) 2.0 H Ur Leukocyte Esterase (NEGATIVE) NEGATIVE Urine RBC (0 - 3 RBC/HPF) 0-3 Urine WBC (0 - 3 WBC/HPF) 0-3 Ur Squamous Epith Cells (NONE SEEN /HPF) NONE S EEN Urine Bacteria (NONE SEEN /HPF) NONE SEEN Urine Mucus (NONE SEEN /LPF) TRACE Microbiology Date/Time Procedure - Status Source Growth 07/05 0450 Stool Leukocytes - COMP STOOL 07/04 2200 MRSA DNA Surveillance Screen - COMP NASAL Radiology data: Recent Impressions: RADIOLOGY - XR CHEST 1 V 07/04 1808 Report Impression - Status: SIGNED Entered: 07/04/2018 181 IMPRESSION: No active infiltrate. SL:01 Impression By: Amadou Koo CAT SCAN - CTA ABD PEL W CONT 07/04 1817 Report Impression - Status: SIGNED Entered: 07/04/2018 1855 IMPRESSION: CHEST: 1. Normal thoracic aorta. No acute cardiopulmona ry process. 2. There is a 4 mm noncalcified right upper lobe pulmonary nodule. Pulmonary nodules this size in patients less alexi n 35 years of age are statistically most likely benign. Unless there i s a high risk for developing pulmonary malignancy, no additional f ollow-up would be recommended. If there is a high risk, consider f ollow-up CT chest in 12 months to evaluate long-term stability. ABDOMEN AND PELVIS: 1. Normal abdominal aorta. 2. There is segmental mucosal thickening of the sigmoid colon. This is possibly due to underdistention and bowel spa sm but I cannot exclude mild segmental inflammation. 3. There are several nonspecific mildly prominen t shotty lymph nodes in the mesenteric root. These may be idiopathic, reactive, due to mesenteric adenitis, or a lymphoproliferative pr ocess. Impression By: Ra Dean M.D. CAT SCAN - CT ANGIO CHEST 07/04 1818 Report Impression - Status: SIGNED Entered: 07/04/2018 5201 IMPRESSION: CHEST: 1. Normal thoracic aorta. No acute cardiopulmona ry process. 2. There is a 4 mm noncalcified right upper lobe pulmonary nodule. Pulmonary nodules this size in patients less alexi n 35 years of age are statistically most likely benign. Unless there i s a high risk for developing pulmonary malignancy, no additional f ollow-up would be recommended. If there is a high risk, consider f ollow-up CT chest in 12 months to evaluate long-term stability. ABDOMEN AND PELVIS: 1. Normal abdominal aorta. 2. There is segmental mucosal thickening of the sigmoid colon. This is possibly due to underdistention and bowel spa sm but I cannot exclude mild segmental inflammation. 3. There are several nonspecific mildly prominen t shotty lymph nodes in the mesenteric root. These may be idiopathic, reactive, due to mesenteric adenitis, or a lymphoproliferative pr ocess. Impression By: Ra Dean M.D. Results: labs reviewed, vital signs stable Diagnosis, Assessment Plan Free Text A P: 1. Abdominal pain with diarrhea - rule out infectious etiologies with stool stud ies. Currently pending. - full liquid diet now. Regular diet in AM. - Bentyl for abdominal cramping - pain control - CT reveals sigmoid colon thickening - Likely self limiting illness - Will order fecal calprotectin, ESR, CRP 2. Nausea - antiemetics as needed Thank you for the kind consult. Electronically Signed by Tristan Doyle on at 1841 RPT #:[id number] END OF REPORT 2018-07-05 13:10:00-00:00 [facility] ([facility]) GE Consultation Note REPORT#:[id number] REPORT STATUS: Signed DATE:07/05/18 TIME: 1310 PATIENT: ROSANNE WILD UNIT #: [id number] ROOM/BED: C143-1 : 92 AGE: 28 SEX: M ATTEND: Jaycob Muller MD ADM AUTHOR: Tristan Doyle * ALL edits or amendments must be made on the [employer]/computer document * Tristan Doyle 07/05/18 1310: History of Present Illness Requesting clinician: Renzo Reason for consult: colitis Chief complaint: abdominal pain HPI: This is a 28-year-old male who presents to the E D with a three day history of diffuse abdominal pain that is crampy/spasming i n nature. The pain is now primariliy in the lower quad rants. Patient reports some nausea and diarrhea but no vomiting. He was having diarrhea 6-7 times a day but no bleeding was noted with these bowel movements. No previous episodes of bloody diarrhea noted in the past. He denieis any family history of IBD. Hes had two episodes of diarrhea today. No recent antibiotics , possible contaminated foods, or sick contacts that he is aware of. Pain is now a 2/10 but on arriva l was a 10/10. History - Adult longitudinal Additional family history: non-contributory Alcohol use: Denies EtOH use Drug use: Denies recreational drugs Smoking status for patients 13 years old or olde r: Never Smoker Medications: Home Medications: Medication Dose/Rte/Freq Days Qty Entered Last Max Daily Dose Reviewed No Known Home Medications Current Hospital Medications: Anti-Infective Agents Sig/Bernadette Start time Last Medication Dose Route Stop Time Status Admin Metronidazole/Sodium 100 ML Q8H 07/05 1822 CAN Chloride IV 07/06 1121 (metroNIDAZOLE 500MG/ NS 100ML) Piperacillin Sod/ 3.375 GM Q8H 07/04 2130 AC Tazobactam Sod IV 07/18 2128 1242 (ZOSYN 3.375GM) Sodium Chloride 100 ML (SODIUM CHLORIDE 0.9% 100 ML) Ceftriaxone Sodium 1,000 MG X1ED STA 07/04 1759 DC 07/04 (ROCEPHIN 1000MG IV 07/04 1828 1931 VIAL) Sodium Chloride 100 ML (SODIUM CHLORIDE 0.9% 100 ML) Metronidazole/Sodium 100 ML X1ED STA 07/04 1759 DC 07/04 Chloride IV 07/04 1858 1822 (metroNIDAZOLE 500MG/ NS 100ML) Autonomic Drugs Sig/Bernadette Start time Last Medication Dose Route Stop Time Status Admin Dicyclomine HCl 20 MG TID 07/05 1500 AC (BENTYL) PO 08/04 1459 Central Nervous System Agents Sig/Bernadette Start time Last Medication Dose Route Stop Time Status Admin Hydromorphone HCl 0.5 MG ONCE ONE 07/05 0515 DC (DILAUDID) IV 07/05 0516 Ketorolac 30 MG Q6H PRN PRN 07/05 0015 AC 07/05 Tromethamine IV 1008 (TORADOL 30 MG) Acetaminophen 1,000 MG Q6H PRN PRN 07/04 1945 A C 07/05 (TYLENOL EXTRA PO 08/03 1943 0532 STRENGTH) Naloxone HCl 0 .STK-MED ONE 07/04 1747 DC (NARCAN) IV Naloxone HCl 2 MG X1ED STA 07/04 1746 DC 07/04 (NARCAN) IV 07/04 1747 1751 Ketorolac 15 MG X1ED STA 07/04 1456 DC 07/04 Tromethamine IV 07/04 1457 1636 (TORADOL) Morphine Sulfate 4 MG X1ED STA 07/04 1456 DC (morphine SULFATE) IV 07/04 1457 1636 Diagnostic Agents Sig/Bernadette Start time Last Medication Dose Route Stop Time Status Admin Diatrizoate Meglum/ 10 ML .STK-MED ONE 07/04 19 43 DC 07/04 Diatrizoate Sod PO 07/04 (GASTROGRAFIN 66-10 SOLUTION) Iopamidol 100 ML .STK-MED ONE 07/04 204 DC (ISOVUE-300) IV 07/04 Electrolytic, Caloric, And Pedro Luis Sig/Bernadette Start time Last Medication Dose Route Stop Time Status Admin Sodium Chloride 1,000 ML .Q8H 07/04 2130 AC (SODIUM CHLORIDE IV 08/03 2129 1242 0.9%) Sodium Chloride 1,000 ML .Q6H40M 07/04 1945 DC 07/04 (SODIUM CHLORIDE IV 07/05 1832 2056 0.9%) Sodium Chloride 1,000 ML X1ED STA 07/04 1759 DC 07/04 (SODIUM CHLORIDE IV 07/04 1858 1822 0.9%) Sodium Chloride 1,000 ML X1ED STA 07/04 1456 DC 07/04 (SODIUM CHLORIDE IV 07/04 1555 1636 0.9%) Eye, Ear, Nose And Throat (Een Sig/Bernadette Start time Last Medication Dose Route Stop Time Status Admin Sodium Chloride 0 ASDIR PRN 07/04 1800 DC (SODIUM CHLORIDE) IV 07/05 1659 Sodium Chloride 0 ASDIR PRN 07/04 1500 DC (SODIUM CHLORIDE) IV 07/05 1356 Gastrointestinal Drugs Sig/Bernadette Start time Last Medication Dose Route Stop Time Status Admin Ondansetron HCl 4 MG Q4H PRN PRN 07/04 2130 AC (ZOFRAN) IV 08/039 Ondansetron HCl 4 MG Q6H PRN PRN 07/04 1945 DC (ZOFRAN) IV 07/05 1832 Ondansetron HCl 8 MG ONCE PRN 07/04 1500 DC (ZOFRAN ODT) PO 08/03 1459 1636 Allergies: Coded Allergies: morphine (unresponsive 07/04/18) Pt reports no significant: past medical history, past surgical history, family history Ambulatory status: Independent Review of Systems Free Text ROS Notes Free Text ROS Notes: Pertinent positives and negatives noted in HPI Objective Physical Exam VS/I O: Last Documented: Result Date Time Pulse Ox 98 07/05 1231 B/P 110/68 07/05 1231 B/P Mean 82.0 07/05 1231 O2 Delivery Room air 07/05 1231 Temp 36.7 07/05 1231 Pulse 56 07/05 1231 Resp 18 07/05 1231 O2 Flow Rate 15.592776 07/04 1755 24 hour I O ending at 0700: 07/05 0700 07/04 1900 Intake Total 1510.00 Output Total Balance 1510.00 Intake, IV 1450.00 Intake, Oral 60 Number 2 Bowel Movements Number Voids 3 Patient 104.4 kg 99.091 kg Weight Weight Bed scale Standing scale Measurement Method Medications: Active Meds + DC'd Last 24 Hrs Metronidazole/Sodium Chloride 100 ML Q8H IV (CAN ) Dicyclomine HCl 20 MG TID PO Hydromorphone HCl 0.5 MG ONCE ONE IV (DC) Ketorolac Tromethamine 30 MG Q6H PRN PRN IV Ondansetron HCl 4 MG Q4H PRN PRN IV Piperacillin Sod/Tazobactam Sod 3.375 GM Q8H IV Sodium Chloride 100 ML Sodium Chloride 1,000 ML .Q8H IV Diatrizoate Meglum/Diatrizoate Sod 10 ML .STK-ME D ONE PO (DC) Iopamidol 100 ML .STK-MED ONE IV (DC) Acetaminophen 1,000 MG Q6H PRN PRN PO Ondansetron HCl 4 MG Q6H PRN PRN IV (DC) Sodium Chloride 1,000 ML .Q6H40M IV (DC) Sodium Chloride 0 ASDIR PRN IV (DC) Ceftriaxone Sodium 1,000 MG X1ED STA IV (DC) Sodium Chloride 100 ML Metronidazole/Sodium Chloride 100 ML X1ED STA IV (DC) Sodium Chloride 1,000 ML X1ED STA IV (DC) Naloxone HCl 0 .STK-MED ONE IV (DC) Naloxone HCl 2 MG X1ED STA IV (DC) Ondansetron HCl 8 MG ONCE PRN PO (DC) Sodium Chloride 0 ASDIR PRN IV (DC) Ketorolac Tromethamine 15 MG X1ED STA IV (DC) Morphine Sulfate 4 MG X1ED STA IV (DC) Sodium Chloride 1,000 ML X1ED STA IV (DC) General appearance: awake, oriented HEENT: atraumatic, normocephalic Cardiovascular: normal capillary refill, regular rate rhythm Respiratory: aerating well, no distress Abdomen: tenderness, normal bowel sounds, soft, no distention Extremities: moves all, no cyanosis Musculoskeletal: normal inspection Neuro/HOSPITAL CARRIER: alert, oriented X 3 Skin: dry, intact Results Findings/Data: Laboratory Tests 07/05/18 0450: [Embedded Image Not Available] 07/04/18 1821: [Embedded Image Not Available] 07/04/18 1800: [Embedded Image Not Available] 07/04/18 1640: [Embedded Image Not Available] 07/04/18 1633: [Embedded Image Not Available] Laboratory Tests 07/05 07/04 07/04 07/04 07/04 0450 1821 1817 1814 1640 Chemistry POC Sodium (134 - 147 MMOL/L) 139 140 Sodium (134 - 147 mEq/L) 141 POC Potassium (3.4 - 5.0 MMOL/L) 3.6 4.0 Potassium (3.4 - 5.0 mEq/L) 4.1 POC Chloride (100 - 108 MMOL/L) 103 98 L Chloride (100 - 108 mEq/L) 110 H Carbon Dioxide (21 - 33 mEq/L) 22 22.0 27.0 Anion Gap (0 - 20) 13 POC BUN (7 - 18 MG/DL) 14 15 BUN (7 - 18 mg/dL) 16 Creatinine (0.6 - 1.3 mg/dL) 1.2 POC Creatinine (0.6 - 1.3 MG/DL) 1.1 1.1 Glomerular Filtr Rate (110 - 120) 73.2 L Estimated GFR (MDRD) (ML/MIN) 86 86 Glucose (70 - 110 mg/dL) 79 POC Glucose (70 - 110 MG/DL) 97 93 POC Lactic Acid (0.90 - 1.70 MMOL/L) 1.3 Calcium (8.0 - 10.5 mg/dL) 8.4 POC Ioniz Calcium Aimee (1.12 - 1.32 MG/DL) 1.12 1.21 Rapid Troponin I (0.00 - 0.08 ng/mL) 0.00 07/04 07/04 1633 1633 Chemistry Total Bilirubin (0.0 - 1.0 mg/dL) 0.50 Direct Bilirubin (0.0 - 0.30 MG/DL) 0.10 Indirect Bilirubin (MG/DL) 0.40 AST (15 - 37 IUnit/L) 27 ALT (15 - 65 IUnit/L) 51 Total Alk Phosphatase (20 - 125 IUnit/L) 83 Total Protein (6.4 - 8.2 g/dL) 8.4 H Albumin (3.4 - 5.0 g/dL) 4.50 Lipase (73 - 393 IUnit/L) 128 Procalcitonin (0.00 - 0.05 ng/mL) 0.11 H Laboratory Tests 07/05 07/04 07/04 0450 1800 1633 Hematology WBC (4.5 - 11.0 x10 3/uL) 6.94 11.90 H 11.27 H RBC (4.00 - 5.60 x10 6/uL) 4.75 5.18 5.80 H Hgb (12.5 - 16.9 g/dL) 13.8 14.9 16.3 Hct (37.5 - 50.7 %) 43.1 44.3 50.8 H MCV (81.0 - 99.0 fL) 90.7 85.5 87.6 MCH (27.0 - 33.0 pg) 29.1 28.8 28.1 MCHC (33.0 - 37.0 g/dL) 32.0 L 33.6 32.1 L RDW (11.5 - 14.5 %) 12.4 12.3 12.2 Plt Count (150 - 400 x10 3/uL) 190 260 274 MPV (7.0 - 9.0 fL) 11.3 H 10.7 H 10.9 H Neut % (Auto) (56.0 - 77.0 %) 74.7 82.1 H 85.5 H Lymph % (Auto) (14.0 - 32.0 %) 13.3 L 9.4 L 7.4 L Custer % (Auto) (4.8 - 9.0 %) 11.0 H 7.7 6.2 Eos % (Auto) (0.3 - 3.7 %) 0.3 0.1 L 0.1 L Baso % (Auto) (0.0 - 2.0 %) 0.3 0.3 0.4 Neut # (Auto) (2.0 - 7.6 x10 3/uL) 5.19 9.77 H 9.64 H Lymph # (Auto) (1.0 - 3.8 x10 3/uL) 0.92 L 1.12 0.83 L Custer # (Auto) (0.1 - 0.8 x10 3/uL) 0.76 0.92 H 0.70 Eos # (Auto) (0.0 - 0.2 x10 3/uL) 0.02 0.01 0.0 1 Baso # (Auto) (0.0 - 0.2 x10 3/uL) 0.02 0.03 0 .04 Abs Immat Gran (auto) (0.00 - 0.03 x10 3/uL) 0. 03 0.05 H 0.05 H Add Manual Diff NO NO NO Immature Gran % (0.0 - 2.0 %) 0.4 0.4 0.4 Nucleated RBC % (0 - 0 %) 0.0 0.0 0.0 Nucleated RBCs # (Man) (0.0 - 0.1 x10 3/uL) 0.0 0 0.00 0.00 Laboratory Tests 07/04 1633 Urines Urine Color (YEL/STRAW) YELLOW Urine Appearance (CLEAR) CLEAR Urine pH (5.0 - 7.0) 6.0 Ur Specific Imperial (1.005 - 1.030) 1.021 Urine Protein (NEGATIVE) NEGATIVE Urine Glucose (UA) (NEGATIVE) NEGATIVE Urine Ketones (NEGATIVE) NEGATIVE Urine Blood (NEGATIVE) NEGATIVE Urine Nitrite (NEGATIVE) NEGATIVE Urine Bilirubin (NEGATIVE) NEGATIVE Urine Urobilinogen (0.2 - 1.0 mg/dL) 2.0 H Ur Leukocyte Esterase (NEGATIVE) NEGATIVE Urine RBC (0 - 3 RBC/HPF) 0-3 Urine WBC (0 - 3 WBC/HPF) 0-3 Ur Squamous Epith Cells (NONE SEEN /HPF) NONE S EEN Urine Bacteria (NONE SEEN /HPF) NONE SEEN Urine Mucus (NONE SEEN /LPF) TRACE Microbiology Date/Time Procedure - Status Source Growth 07/05 0450 Stool Leukocytes - COMP STOOL 07/04 2200 MRSA DNA Surveillance Screen - COMP NASAL Radiology data: Recent Impressions: RADIOLOGY - XR CHEST 1 V 07/04 1808 Report Impression - Status: SIGNED Entered: 07/04/2018 1814 IMPRESSION: No active infiltrate. SL:[id number] Impression By: Amadou Koo CAT SCAN - CTA ABD PEL W CONT 07/04 1817 Report Impression - Status: SIGNED Entered: 07/04/2018 1855 IMPRESSION: CHEST: 1. Normal thoracic aorta. No acute cardiopulmona ry process. 2. There is a 4 mm noncalcified right upper lobe pulmonary nodule. Pulmonary nodules this size in patients less alexi n 35 years of age are statistically most likely benign. Unless there i s a high risk for developing pulmonary malignancy, no additional f ollow-up would be recommended. If there is a high risk, consider f ollow-up CT chest in 12 months to evaluate long-term stability. ABDOMEN AND PELVIS: 1. Normal abdominal aorta. 2. There is segmental mucosal thickening of the sigmoid colon. This is possibly due to underdistention and bowel spa sm but I cannot exclude mild segmental inflammation. 3. There are several nonspecific mildly prominen t shotty lymph nodes in the mesenteric root. These may be idiopathic, reactive, due to mesenteric adenitis, or a lymphoproliferative pr ocess. Impression By: Ra Dean M.D. CAT SCAN - CT ANGIO CHEST 07/04 1819 Report Impression - Status: SIGNED Entered: 07/04/2018 1643 IMPRESSION: CHEST: 1. Normal thoracic aorta. No acute cardiopulmona ry process. 2. There is a 4 mm noncalcified right upper lobe pulmonary nodule. Pulmonary nodules this size in patients less alexi n 35 years of age are statistically most likely benign. Unless there i s a high risk for developing pulmonary malignancy, no additional f ollow-up would be recommended. If there is a high risk, consider f ollow-up CT chest in 12 months to evaluate long-term stability. ABDOMEN AND PELVIS: 1. Normal abdominal aorta. 2. There is segmental mucosal thickening of the sigmoid colon. This is possibly due to underdistention and bowel spa sm but I cannot exclude mild segmental inflammation. 3. There are several nonspecific mildly prominen t shotty lymph nodes in the mesenteric root. These may be idiopathic, reactive, due to mesenteric adenitis, or a lymphoproliferative pr ocess. Impression By: Ra Dean M.D. Results: labs reviewed, vital signs stable Diagnosis, Assessment Plan Free Text A P: 1. Abdominal pain with diarrhea - rule out infectious etiologies with stool stud ies. Currently pending. - full liquid diet now. Regular diet in AM. - Bentyl for abdominal cramping - pain control - CT reveals sigmoid colon thickening - Likely self limiting illness - Will order fecal calprotectin, ESR, CRP 2. Nausea - antiemetics as needed Thank you for the kind consult. Lynne Weaver V. 07/19/18 0755: Attestations Midlevel/Physician Attestation Physician attestation: Patient seen and examined. A gree with the findings and plan as documented by PROCESS CHECKER. Electronically Signed by Tristan Doyle on at 1846 RPT #:[id number] END OF REPORT 2018-07-05 13:10:00-00:00 [facility] ([facility]) GE Consultation Note REPORT#:[id number] REPORT STATUS: Signed DATE:07/05/18 TIME: 1310 PATIENT: ROSANNE WILD UNIT #: [id number] ROOM/BED: [place] [address] : 92 AGE: 28 SEX: M ATTEND: Jaycob Muller MD ADM AUTHOR: Tristan Doyle * ALL edits or amendments must be made on the [employer]/computer document * Tristan Doyle 07/05/18 1310: History of Present Illness Requesting clinician: Renzo Reason for consult: colitis Chief complaint: abdominal pain HPI: This is a 28-year-old male who presents to the E D with a three day history of diffuse abdominal pain that is crampy/spasming i n nature. The pain is now primariliy in the lower quad rants. Patient reports some nausea and diarrhea but no vomiting. He was having diarrhea 6-7 times a day but no bleeding was noted with these bowel movements. No previous episodes of bloody diarrhea noted in the past. He denieis any family history of IBD. Hes had two episodes of diarrhea today. No recent antibiotics , possible contaminated foods, or sick contacts that he is aware of. Pain is now a 2/10 but on arriva l was a 10/10. History - Adult longitudinal Additional family history: non-contributory Alcohol use: Denies EtOH use Drug use: Denies recreational drugs Smoking status for patients 13 years old or olde r: Never Smoker Medications: Home Medications: Medication Dose/Rte/Freq Days Qty Entered Last Max Daily Dose Reviewed No Known Home Medications Current Hospital Medications: Anti-Infective Agents Sig/Bernadette Start time Last Medication Dose Route Stop Time Status Admin Metronidazole/Sodium 100 ML Q8H 07/05 1822 CAN Chloride IV 07/06 1121 (metroNIDAZOLE 500MG/ NS 100ML) Piperacillin Sod/ 3.375 GM Q8H 07/04 2130 AC Tazobactam Sod IV 07/18 2128 1242 (ZOSYN 3.375GM) Sodium Chloride 100 ML (SODIUM CHLORIDE 0.9% 100 ML) Ceftriaxone Sodium 1,000 MG X1ED STA 07/04 1759 DC 07/04 (ROCEPHIN 1000MG IV 07/04 1828 1931 VIAL) Sodium Chloride 100 ML (SODIUM CHLORIDE 0.9% 100 ML) Metronidazole/Sodium 100 ML X1ED STA 07/04 1759 DC 07/04 Chloride IV 07/04 1858 1822 (metroNIDAZOLE 500MG/ NS 100ML) Autonomic Drugs Sig/Bernadette Start time Last Medication Dose Route Stop Time Status Admin Dicyclomine HCl 20 MG TID 07/05 1500 AC (BENTYL) PO 08/04 1459 Central Nervous System Agents Sig/Bernadette Start time Last Medication Dose Route Stop Time Status Admin Hydromorphone HCl 0.5 MG ONCE ONE 07/05 0515 DC (DILAUDID) IV 07/05 05 Ketorolac 30 MG Q6H PRN PRN 07/05 0015 AC 07/05 Tromethamine IV 1008 (TORADOL 30 MG) Acetaminophen 1,000 MG Q6H PRN PRN 07/04 1945 A C 07/05 (TYLENOL EXTRA PO 08/03 1943 0532 STRENGTH) Naloxone HCl 0 .STK-MED ONE 07/04 1747 DC (NARCAN) IV Naloxone HCl 2 MG X1ED STA 07/04 1746 DC 07/04 (NARCAN) IV 07/04 1747 1751 Ketorolac 15 MG X1ED STA 07/04 1456 DC 07/04 Tromethamine IV 07/04 1457 1636 (TORADOL) Morphine Sulfate 4 MG X1ED STA 07/04 1456 DC 0 07/04 (morphine SULFATE) IV 07/04 1457 1636 Diagnostic Agents Sig/Bernadette Start time Last Medication Dose Route Stop Time Status Admin Diatrizoate Meglum/ 10 ML .STK-MED ONE 07/04 20 43 DC 07/04 Diatrizoate Sod PO 07/04 (GASTROGRAFIN 66-10 SOLUTION) Iopamidol 100 ML .STK-MED ONE 07/04 2042 DC (ISOVUE-300) IV 07/04 Electrolytic, Caloric, And Pedro Luis Sig/Bernadette Start time Last Medication Dose Route Stop Time Status Admin Sodium Chloride 1,000 ML .Q8H 07/04 2130 AC (SODIUM CHLORIDE IV 02/15 2129 1242 0.9%) Sodium Chloride 1,000 ML .Q6H40M 07/04 1945 DC 07/04 (SODIUM CHLORIDE IV 07/05 1832 2056 0.9%) Sodium Chloride 1,000 ML X1ED STA 07/04 1759 DC 07/04 (SODIUM CHLORIDE IV 07/04 1858 1822 0.9%) Sodium Chloride 1,000 ML X1ED STA 07/04 1456 DC 07/04 (SODIUM CHLORIDE IV 07/04 1555 1636 0.9%) Eye, Ear, Nose And Throat (Een Sig/Bernadette Start time Last Medication Dose Route Stop Time Status Admin Sodium Chloride 0 ASDIR PRN 07/04 1800 DC (SODIUM CHLORIDE) IV 07/05 1659 Sodium Chloride 0 ASDIR PRN 07/04 1500 DC (SODIUM CHLORIDE) IV 07/05 1356 Gastrointestinal Drugs Sig/Bernadette Start time Last Medication Dose Route Stop Time Status Admin Ondansetron HCl 4 MG Q4H PRN PRN 07/04 2130 AC (ZOFRAN) IV 08/03 2128 Ondansetron HCl 4 MG Q6H PRN PRN 07/04 1945 DC (ZOFRAN) IV 07/05 1832 Ondansetron HCl 8 MG ONCE PRN 07/04 1500 DC (ZOFRAN ODT) PO 08/03 1459 1636 Allergies: Coded Allergies: morphine (unresponsive 07/04/18) Pt reports no significant: past medical history, past surgical history, family history Ambulatory status: Independent Review of Systems Free Text ROS Notes Free Text ROS Notes: Pertinent positives and negatives noted in HPI Objective Physical Exam VS/I O: Last Documented: Result Date Time Pulse Ox 98 07/05 1231 B/P 110/68 07/05 1231 B/P Mean 82.0 07/05 1231 O2 Delivery Room air 07/05 1231 Temp 36.7 07/05 1231 Pulse 56 07/05 1231 Resp 18 07/05 1231 O2 Flow Rate 15.618693 07/04 1755 24 hour I O ending at 0700: 07/05 0700 07/04 1900 Intake Total 1510.00 Output Total Balance 1510.00 Intake, IV 1450.00 Intake, Oral 60 Number 2 Bowel Movements Number Voids 3 Patient 104.4 kg 99.091 kg Weight Weight Bed scale Standing scale Measurement Method Medications: Active Meds + DC'd Last 24 Hrs Metronidazole/Sodium Chloride 100 ML Q8H IV (CAN ) Dicyclomine HCl 20 MG TID PO Hydromorphone HCl 0.5 MG ONCE ONE IV (DC) Ketorolac Tromethamine 30 MG Q6H PRN PRN IV Ondansetron HCl 4 MG Q4H PRN PRN IV Piperacillin Sod/Tazobactam Sod 3.375 GM Q8H IV Sodium Chloride 100 ML Sodium Chloride 1,000 ML .Q8H IV Diatrizoate Meglum/Diatrizoate Sod 10 ML .STK-ME D ONE PO (DC) Iopamidol 100 ML .STK-MED ONE IV (DC) Acetaminophen 1,000 MG Q6H PRN PRN PO Ondansetron HCl 4 MG Q6H PRN PRN IV (DC) Sodium Chloride 1,000 ML .Q6H40M IV (DC) Sodium Chloride 0 ASDIR PRN IV (DC) Ceftriaxone Sodium 1,000 MG X1ED STA IV (DC) Sodium Chloride 100 ML Metronidazole/Sodium Chloride 100 ML X1ED STA IV (DC) Sodium Chloride 1,000 ML X1ED STA IV (DC) Naloxone HCl 0 .STK-MED ONE IV (DC) Naloxone HCl 2 MG X1ED STA IV (DC) Ondansetron HCl 8 MG ONCE PRN PO (DC) Sodium Chloride 0 ASDIR PRN IV (DC) Ketorolac Tromethamine 15 MG X1ED STA IV (DC) Morphine Sulfate 4 MG X1ED STA IV (DC) Sodium Chloride 1,000 ML X1ED STA IV (DC) General appearance: awake, oriented HEENT: atraumatic, normocephalic Cardiovascular: normal capillary refill, regular rate rhythm Respiratory: aerating well, no distress Abdomen: tenderness, normal bowel sounds, soft, no distention Extremities: moves all, no cyanosis Musculoskeletal: normal inspection Neuro/HOSPITAL CARRIER: alert, oriented X 3 Skin: dry, intact Results Findings/Data: Laboratory Tests 07/05/18 0450: [Embedded Image Not Available] 07/04/18 1821: [Embedded Image Not Available] 07/04/18 1800: [Embedded Image Not Available] 07/04/18 1640: [Embedded Image Not Available] 07/04/18 1633: [Embedded Image Not Available] Laboratory Tests 01/07/04 0450 1821 1817 1814 1640 Chemistry POC Sodium (134 - 147 MMOL/L) 139 140 Sodium (134 - 147 mEq/L) 141 POC Potassium (3.4 - 5.0 MMOL/L) 3.6 4.0 Potassium (3.4 - 5.0 mEq/L) 4.1 POC Chloride (100 - 108 MMOL/L) 103 98 L Chloride (100 - 108 mEq/L) 110 H Carbon Dioxide (21 - 33 mEq/L) 22 22.0 27.0 Anion Gap (0 - 20) 13 POC BUN (7 - 18 MG/DL) 14 15 BUN (7 - 18 mg/dL) 16 Creatinine (0.6 - 1.3 mg/dL) 1.2 POC Creatinine (0.6 - 1.3 MG/DL) 1.1 1.1 Glomerular Filtr Rate (110 - 120) 73.2 L Estimated GFR (MDRD) (ML/MIN) 86 86 Glucose (70 - 110 mg/dL) 79 POC Glucose (70 - 110 MG/DL) 97 93 POC Lactic Acid (0.90 - 1.70 MMOL/L) 1.3 Calcium (8.0 - 10.5 mg/dL) 8.4 POC Ioniz Calcium Aimee (1.12 - 1.32 MG/DL) 1.12 1.21 Rapid Troponin I (0.00 - 0.08 ng/mL) 0.00 07/04 07/04 1633 1633 Chemistry Total Bilirubin (0.0 - 1.0 mg/dL) 0.50 Direct Bilirubin (0.0 - 0.30 MG/DL) 0.10 Indirect Bilirubin (MG/DL) 0.40 AST (15 - 37 IUnit/L) 27 ALT (15 - 65 IUnit/L) 51 Total Alk Phosphatase (20 - 125 IUnit/L) 83 Total Protein (6.4 - 8.2 g/dL) 8.4 H Albumin (3.4 - 5.0 g/dL) 4.50 Lipase (73 - 393 IUnit/L) 128 Procalcitonin (0.00 - 0.05 ng/mL) 0.11 H Laboratory Tests 07/05 07/04 07/04 0450 1800 1633 Hematology WBC (4.5 - 11.0 x10 3/uL) 6.94 11.90 H 11.27 H RBC (4.00 - 5.60 x10 6/uL) 4.75 5.18 5.80 H Hgb (12.5 - 16.9 g/dL) 13.8 14.9 16.3 Hct (37.5 - 50.7 %) 43.1 44.3 50.8 H MCV (81.0 - 99.0 fL) 90.7 85.5 87.6 MCH (27.0 - 33.0 pg) 29.1 28.8 28.1 MCHC (33.0 - 37.0 g/dL) 32.0 L 33.6 32.1 L RDW (11.5 - 14.5 %) 12.4 12.3 12.2 Plt Count (150 - 400 x10 3/uL) 190 260 274 MPV (7.0 - 9.0 fL) 11.3 H 10.7 H 10.9 H Neut % (Auto) (56.0 - 77.0 %) 74.7 82.1 H 85.5 H Lymph % (Auto) (14.0 - 32.0 %) 13.3 L 9.4 L 7.4 L Custer % (Auto) (4.8 - 9.0 %) 11.0 H 7.7 6.2 Eos % (Auto) (0.3 - 3.7 %) 0.3 0.1 L 0.1 L Baso % (Auto) (0.0 - 2.0 %) 0.3 0.3 0.4 Neut # (Auto) (2.0 - 7.6 x10 3/uL) 5.19 9.77 H 9.64 H Lymph # (Auto) (1.0 - 3.8 x10 3/uL) 0.92 L 1.12 0.83 L Custer # (Auto) (0.1 - 0.8 x10 3/uL) 0.76 0.92 H 0.70 Eos # (Auto) (0.0 - 0.2 x10 3/uL) 0.02 0.01 0.0 1 Baso # (Auto) (0.0 - 0.2 x10 3/uL) 0.02 0.03 0. 04 Abs Immat Gran (auto) (0.00 - 0.03 x10 3/uL) 0. 03 0.05 H 0.05 H Add Manual Diff NO NO NO Immature Gran % (0.0 - 2.0 %) 0.4 0.4 0.4 Nucleated RBC % (0 - 0 %) 0.0 0.0 0.0 Nucleated RBCs # (Man) (0.0 - 0.1 x10 3/uL) 0.0 0 0.00 0.00 Laboratory Tests 07/04 1633 Urines Urine Color (YEL/STRAW) YELLOW Urine Appearance (CLEAR) CLEAR Urine pH (5.0 - 7.0) 6.0 Ur Specific Imperial (1.005 - 1.030) 1.021 Urine Protein (NEGATIVE) NEGATIVE Urine Glucose (UA) (NEGATIVE) NEGATIVE Urine Ketones (NEGATIVE) NEGATIVE Urine Blood (NEGATIVE) NEGATIVE Urine Nitrite (NEGATIVE) NEGATIVE Urine Bilirubin (NEGATIVE) NEGATIVE Urine Urobilinogen (0.2 - 1.0 mg/dL) 2.0 H Ur Leukocyte Esterase (NEGATIVE) NEGATIVE Urine RBC (0 - 3 RBC/HPF) 0-3 Urine WBC (0 - 3 WBC/HPF) 0-3 Ur Squamous Epith Cells (NONE SEEN /HPF) NONE S EEN Urine Bacteria (NONE SEEN /HPF) NONE SEEN Urine Mucus (NONE SEEN /LPF) TRACE Microbiology Date/Time Procedure - Status Source Growth 07/05 0450 Stool Leukocytes - COMP STOOL 07/04 2200 MRSA DNA Surveillance Screen - COMP NASAL Radiology data: Recent Impressions: RADIOLOGY - XR CHEST 1 V 07/04 1808 Report Impression - Status: SIGNED Entered: 07/04/2018 1814 IMPRESSION: No active infiltrate. SL:01 Impression By: Amadou Koo CAT SCAN - CTA ABD PEL W CONT 07/04 1817 Report Impression - Status: SIGNED Entered: 07/04/2018 1855 IMPRESSION: CHEST: 1. Normal thoracic aorta. No acute cardiopulmona ry process. 2. There is a 4 mm noncalcified right upper lobe pulmonary nodule. Pulmonary nodules this size in patients less alexi n 35 years of age are statistically most likely benign. Unless there i s a high risk for developing pulmonary malignancy, no additional f ollow-up would be recommended. If there is a high risk, consider f ollow-up CT chest in 12 months to evaluate long-term stability. ABDOMEN AND PELVIS: 1. Normal abdominal aorta. 2. There is segmental mucosal thickening of the sigmoid colon. This is possibly due to underdistention and bowel spa sm but I cannot exclude mild segmental inflammation. 3. There are several nonspecific mildly prominen t shotty lymph nodes in the mesenteric root. These may be idiopathic, reactive, due to mesenteric adenitis, or a lymphoproliferative pr ocess. Impression By: Ra Dean M.D. CAT SCAN - CT ANGIO CHEST 07/048 Report Impression - Status: SIGNED Entered: 07/04/2018 8740 IMPRESSION: CHEST: 1. Normal thoracic aorta. No acute cardiopulmona ry process. 2. There is a 4 mm noncalcified right upper lobe pulmonary nodule. Pulmonary nodules this size in patients less alexi n 35 years of age are statistically most likely benign. Unless there i s a high risk for developing pulmonary malignancy, no additional f ollow-up would be recommended. If there is a high risk, consider f ollow-up CT chest in 12 months to evaluate long-term stability. ABDOMEN AND PELVIS: 1. Normal abdominal aorta. 2. There is segmental mucosal thickening of the sigmoid colon. This is possibly due to underdistention and bowel spa sm but I cannot exclude mild segmental inflammation. 3. There are several nonspecific mildly prominen t shotty lymph nodes in the mesenteric root. These may be idiopathic, reactive, due to mesenteric adenitis, or a lymphoproliferative pr ocess. Impression By: Ra Dean M.D. Results: labs reviewed, vital signs stable Diagnosis, Assessment Plan Free Text A P: 1. Abdominal pain with diarrhea - rule out infectious etiologies with stool stud ies. Currently pending. - full liquid diet now. Regular diet in AM. - Bentyl for abdominal cramping - pain control - CT reveals sigmoid colon thickening - Likely self limiting illness - Will order fecal calprotectin, ESR, CRP 2. Nausea - antiemetics as needed Thank you for the kind consult. Lynne Weaver V. 07/19/18 0755: Attestations Midlevel/Physician Attestation Physician attestation: Patient seen and examined. A gree with the findings and plan as documented by PROCESS CHECKER. Electronically Signed by Tristan Doyle on at 1846 Electronically Signed by Lynne Weaver MD on 0 07/19/18 at 0803 RPT #:[id number] END OF REPORT 2018-07-04 14:59:00-00:00 [facility] ([facility]) OR A [facility]AMP[facility] OF [facility] EMERGENCY PROVIDER REPORT REPORT#:[id number] REPORT STATUS: Signed DATE:07/04/18 TIME: 1458 PATIENT: ROSANNE WILD UNIT #: [id number] ROOM/BED: [facility] AGE: 28 SEX: M PCP PHYS: No Primary or Family Ph ysician SERVICE AUTHOR: Michael Cristina * ALL edits or amendments must be made on the [employer]/computer document * Michael Cristina 07/04/18 1459: HPI-Abd Pain M Under 40 General Confirmed Patient Yes Initial Greet Date/Time 07/04/18 1449 PCP none Presentation Chief Complaint Abdominal pain Sudden in Onset? Yes Onset Occurred Today Symptom Duration Since onset Progression since Onset Intermittent Associated with Reports: Diarrhea. Denies: Hematuria, Nausea, Vo miting. Free Text HPI Notes Free Text HPI Notes 28 y/o M w/ no significant PMHx presents to the ED d/t abd pain that started this morning. Pt states that the pain has been i ntermittent since onset and feels like a "twisting sensation" in his LLQ. He notes that his noticed a blue/green streak across the area a few nights ago that is no longer present. He reports orange colored urine and diarrhea for the past week. He denies hematuria , scrotal swelling, N/V, and other assoc. sxs. Portions of this section were scribed by Emperatriz Rich on 07/04/18 at 1835 Risk-Abd Pain M Under 40 )( Torsion Risk factors reviewed Portions of this section were scribed by Emperatriz Rich on 07/04/18 at 1459 Review of Systems ROS Statements All systems rev neg except as marked. Focused Review of Systems GI Reports: Abdominal pain, Diarrhea. Denies: Nause a, Vomiting. Male Denies: Hematuria, Scrotal swelling. Portions of this section were scribed by Emperatriz Rich on 07/04/18 at 1459 Past Medical History - Adult Stated Complaint ABD PAIN Pt reports no significant: Past medical history, Past surgical history Smoking status for patients 13 years old or olde r: Never Smoker Portions of this section were scribed by Emperatriz Rich on 07/04/18 at 1459 Physical Exam Vital Signs Vital Signs Review of Vital Signs Reviewed Focused PE General/Const General/Const Awake, Alert, Well developed, Corporate Accounting Manager perative MS Head Head Atraumatic, Normocephalic Eyes Eyes EOMI, Conjunctiva NL Ears/Nose/Throat Ears/Nose/Throat Airway patent, Mucous membrane s moist Resp/Chest Respiratory/Chest Breath sounds NL, No respirat ory distress, No rales, No rhonchi, No wheezing Cardiovascular Cardiovascular Heart rate NL, Regular rhythm, H eart sounds NL Abdomen/GI Abdomen/GI Soft, No guarding, No rebound, No di stention Text/Dict Notes diffuse lower abd tenderness MS Back Back Inspection NL, No CVA tenderness Skin Skin Warm, Dry, Intact Neurologic Neurologic Oriented X3, Speech NL Additional PE Psychiatric Psychiatric Affect NL, Mood NL Portions of this section were scribed by Emperatriz Rich on 07/04/18 at 1835 Interpretation Diagnostics Lab Results Interpretation Results Lab Imaging Statement Laboratory radiographic studies reviewed and con sidered in the medical decision-making. Point of Care Testing Pulse Oximetry Pulse Ox % 99 On: Room air Interpretation Interpreted by me, Pulse oximetr y normal Time 1456 Radiography X-Ray Chest Text/Dict Note RADIOLOGY - XR CHEST 1 V 07/04 1808 Report Impression - Status: SIGNED Entered: 07/04/2018 1814 IMPRESSION: No active infiltrate. SL:01 Impression By: Amadou Koo Interpretation/Wet Read by Interpret - Radiolog ist Reviewed by JENNY MCCOLLUM Portions of this section were scribed by Emperatriz Rich on 07/04/18 at 1835 Re-Evaluation MDM )( Re-Evaluation/Progress #1 Text/Dict Note Pt was seen in [facility] and became obtunded. H e was not responsive to painful stimul and had spontaneous respirat ions. After 2 mg Narcan, pt became more responsive, more spontaneous respiration s, was tachycardic, diaphoretic, and warm to touch. Will do a secondary sepsis workup on pt. Time of Re-Eval 1758 )( Re-Eval Status Obtunded ED Course Medication(s) Ordered Medication(s) Ordered: Anti-Infective Agents Sig/Bernadette Start time Last Medication Dose Route Stop Time Status Admin Metronidazole/Sodium 100 ML Q8H 07/05 1822 CAN Chloride IV 07/06 1121 Ceftriaxone Sodium 1,000 MG X1ED STA 07/04 1759 DC 07/04 Sodium Chloride 100 ML IV 07/04 1828 1931 Metronidazole/Sodium 100 ML X1ED STA 07/04 1759 DC 07/04 Chloride IV 07/04 1858 1822 Central Nervous System Agents Sig/Bernadette Start time Last Medication Dose Route Stop Time Status Admin Acetaminophen 1,000 MG Q6H PRN PRN 07/04 1945 A C 07/04 PO 08/03 1944 2314 Naloxone HCl 0 .STK-MED ONE 07/04 1747 DC IV Naloxone HCl 2 MG X1ED STA 07/04 1746 DC 07/04 IV 07/04 1747 1751 Ketorolac 15 MG X1ED STA 07/04 1456 DC 07/04 Tromethamine IV 07/04 1457 1636 Morphine Sulfate 4 MG X1ED STA 07/04 1456 DC IV 07/04 1457 1636 Electrolytic, Caloric, And Pedro Luis Sig/Bernadette Start time Last Medication Dose Route Stop Time Status Admin Sodium Chloride 1,000 ML .Q6H40M 07/04 1945 DC 07/04 IV 07/05 1832 2056 Sodium Chloride 1,000 ML X1ED STA 07/04 1759 DC 07/04 IV 07/04 1858 1822 Sodium Chloride 1,000 ML X1ED STA 07/04 1456 DC 07/04 IV 07/04 1555 1636 Eye, Ear, Nose And Throat (Een Sig/Bernadette Start time Last Medication Dose Route Stop Time Status Admin Sodium Chloride 0 ASDIR PRN 07/04 1800 DC IV 07/05 1659 Sodium Chloride 0 ASDIR PRN 07/04 1500 DC IV 07/05 1356 Gastrointestinal Drugs Sig/Bernadette Start time Last Medication Dose Route Stop Time Status Admin Ondansetron HCl 4 MG Q6H PRN PRN 07/04 1945 DC IV 07/05 1832 Ondansetron HCl 8 MG ONCE PRN 07/04 1500 DC PO 08/03 1459 1636 Portions of this section were scribed by Emperatriz Rich on 07/04/18 at 1835 Patient Discharge Departure Vital Signs/Condition Vital Signs Supervising Physician Note Scribe Statement Emperatriz Rich, 07/04/18 1504, scribing for and in the presence of [CHUN Lino]. Signed By: Emperatriz Rich, 07/04/18 1504 Provider Scribed Statement I personally performed the s ervices described in this documentation and reviewed the documentation that was dictated to the scrib e(s) in my presence, and it accurately records my words and actions. Michael Cristina, 07/09/18 Portions of this section were scribed by Emperatriz Rich on 07/04/18 at 1835 Portions of this section were scribed by Gabino Wilson on 07/04/18 at 1934 [place] 07/04/18 1830: Past Medical History - Adult Allergies Coded Allergies: morphine (unresponsive 07/04/18) Physical Exam Vital Signs Vital Signs First Documented: Result Date Time Pulse Ox 99 07/04 1456 B/P 131/72 07/04 145 B/P Mean 91 07/04 1456 O2 Delivery Room air 07/04 1455 Temp 37.4 07/04 145 Pulse 129 07/04 1456 Resp 18 07/04 145 O2 Flow Rate 15.476339 07/04 1755 Last Documented: Result Date Time Temp 36.9 07/04 194 Pulse Ox 97 07/04 1928 B/P 143/77 07/04 1928 B/P Mean 99 07/04 1928 O2 Delivery Room air 07/04 1928 Pulse 103 07/04 192 Resp 18 07/04 1928 O2 Flow Rate 15.502805 07/04 1755 Portions of this section were scribed by Gabino Wilson on 07/04/18 at 1931 Interpretation Diagnostics Lab Results Interpretation Results Laboratory Tests 07/04/18 1821: [Embedded Image Not Available] 07/04/18 1800: [Embedded Image Not Available] 07/04/18 1640: [Embedded Image Not Available] 07/04/18 1633: [Embedded Image Not Available] Laboratory Tests: 07/04 07/04 07/04 07/04 07/04 1821 1817 1814 1800 1640 Chemistry POC Sodium (134 - 147 MMOL/L) 139 140 POC Potassium (3.4 - 5.0 MMOL/L) 3.6 4.0 POC Chloride (100 - 108 MMOL/L) 103 98 L Carbon Dioxide (21 - 33 mmol/L) 22.0 27.0 POC BUN (7 - 18 MG/DL) 14 15 POC Creatinine (0.6 - 1.3 MG/DL) 1.1 1.1 Estimated GFR (MDRD) (ML/MIN) 86 86 POC Glucose (70 - 110 MG/DL) 97 93 POC Lactic Acid (0.90 - 1.70 MMOL/L) 1.3 POC Ioniz Calcium Aimee (1.12 - 1.32 1.12 1.21 MG/DL) Rapid Troponin I (0.00 - 0.08 ng/mL) 0.00 Hematology WBC (4.5 - 11.0 x10 3/uL) 11.90 H RBC (4.00 - 5.60 x10 6/uL) 5.18 Hgb (12.5 - 16.9 g/dL) 14.9 Hct (37.5 - 50.7 %) 44.3 MCV (81.0 - 99.0 fL) 85.5 MCH (27.0 - 33.0 pg) 28.8 MCHC (33.0 - 37.0 g/dL) 33.6 RDW (11.5 - 14.5 %) 12.3 Plt Count (150 - 400 x10 3/uL) 260 MPV (7.0 - 9.0 fL) 10.7 H Neut % (Auto) (56.0 - 77.0 %) 82.1 H Lymph % (Auto) (14.0 - 32.0 %) 9.4 L Custer % (Auto) (4.8 - 9.0 %) 7.7 Eos % (Auto) (0.3 - 3.7 %) 0.1 L Baso % (Auto) (0.0 - 2.0 %) 0.3 Neut # (Auto) (2.0 - 7.6 x10 3/uL) 9.77 H Lymph # (Auto) (1.0 - 3.8 x10 3/uL) 1.12 Custer # (Auto) (0.1 - 0.8 x10 3/uL) 0.92 H Eos # (Auto) (0.0 - 0.2 x10 3/uL) 0.01 Baso # (Auto) (0.0 - 0.2 x10 3/uL) 0.03 Abs Immat Gran (auto) (0.00 - 0.03 0.05 H x10 3/uL) Add Manual Diff NO Immature Gran % (0.0 - 2.0 %) 0.4 Nucleated RBC % (0 - 0 %) 0.0 Nucleated RBCs # (Man) (0.0 - 0.1 0.00 x10 3/uL) 07/04 07/04 1633 1633 Chemistry Total Bilirubin (0.0 - 1.0 mg/dL) 0.50 Direct Bilirubin (0.0 - 0.30 MG/DL) 0.10 Indirect Bilirubin (MG/DL) 0.40 AST (15 - 37 IUnit/L) 27 ALT (15 - 65 IUnit/L) 51 Total Alk Phosphatase (20 - 125 IUnit/L) 83 Total Protein (6.4 - 8.2 g/dL) 8.4 H Albumin (3.4 - 5.0 g/dL) 4.50 Lipase (73 - 393 IUnit/L) 128 Procalcitonin (0.00 - 0.05 ng/mL) 0.11 H Hematology WBC (4.5 - 11.0 x10 3/uL) 11.27 H RBC (4.00 - 5.60 x10 6/uL) 5.80 H Hgb (12.5 - 16.9 g/dL) 16.3 Hct (37.5 - 50.7 %) 50.8 H MCV (81.0 - 99.0 fL) 87.6 MCH (27.0 - 33.0 pg) 28.1 MCHC (33.0 - 37.0 g/dL) 32.1 L RDW (11.5 - 14.5 %) 12.2 Plt Count (150 - 400 x10 3/uL) 274 MPV (7.0 - 9.0 fL) 10.9 H Neut % (Auto) (56.0 - 77.0 %) 85.5 H Lymph % (Auto) (14.0 - 32.0 %) 7.4 L Custer % (Auto) (4.8 - 9.0 %) 6.2 Eos % (Auto) (0.3 - 3.7 %) 0.1 L Baso % (Auto) (0.0 - 2.0 %) 0.4 Neut # (Auto) (2.0 - 7.6 x10 3/uL) 9.64 H Lymph # (Auto) (1.0 - 3.8 x10 3/uL) 0.83 L Custer # (Auto) (0.1 - 0.8 x10 3/uL) 0.70 Eos # (Auto) (0.0 - 0.2 x10 3/uL) 0.01 Baso # (Auto) (0.0 - 0.2 x10 3/uL) 0.04 Abs Immat Gran (auto) (0.00 - 0.03 x10 3/uL) 0. 05 H Add Manual Diff NO Immature Gran % (0.0 - 2.0 %) 0.4 Nucleated RBC % (0 - 0 %) 0.0 Nucleated RBCs # (Man) (0.0 - 0.1 x10 3/uL) 0.0 0 Urines Urine Color (YEL/STRAW) YELLOW Urine Appearance (CLEAR) CLEAR Urine pH (5.0 - 7.0) 6.0 Ur Specific Imperial (1.005 - 1.030) 1.021 Urine Protein (NEGATIVE) NEGATIVE Urine Glucose (UA) (NEGATIVE) NEGATIVE Urine Ketones (NEGATIVE) NEGATIVE Urine Blood (NEGATIVE) NEGATIVE Urine Nitrite (NEGATIVE) NEGATIVE Urine Bilirubin (NEGATIVE) NEGATIVE Urine Urobilinogen (0.2 - 1.0 mg/dL) 2.0 H Ur Leukocyte Esterase (NEGATIVE) NEGATIVE Urine RBC (0 - 3 RBC/HPF) 0-3 Urine WBC (0 - 3 WBC/HPF) 0-3 Ur Squamous Epith Cells (NONE SEEN /HPF) NONE S EEN Urine Bacteria (NONE SEEN /HPF) NONE SEEN Urine Mucus (NONE SEEN /LPF) TRACE Microbiology: Date/Time Procedure - Status Source Growth 07/04 181 Blood Culture - RES BLOOD 07/04 1805 Blood Culture - RES BLOOD 07/04 1500 Campylobacter Culture - COMP STOOL 07/04 1500 Escherichia coli 0157 Culture - COMP STOOL 07/04 1500 Stool Culture - COMP STOOL Recent Impressions: RADIOLOGY - XR CHEST 1 V 07/04 1808 Report Impression - Status: SIGNED Entered: 07/04/2018 1814 IMPRESSION: No active infiltrate. SL:01 Impression By: Fabby Gudino M.D . CAT SCAN - CTA ABD PEL W CONT 07/04 1816 Report Impression - Status: SIGNED Entered: 07/04/2018 1855 IMPRESSION: CHEST: 1. Normal thoracic aorta. No acute cardiopulmona ry process. 2. There is a 4 mm noncalcified right upper lobe pulmonary nodule. Pulmonary nodules this size in patients less alexi n 35 years of age are statistically most likely benign. Unless there i s a high risk for developing pulmonary malignancy, no additional f ollow-up would be recommended. If there is a high risk, consider f ollow-up CT chest in 12 months to evaluate long-term stability. ABDOMEN AND PELVIS: 1. Normal abdominal aorta. 2. There is segmental mucosal thickening of the sigmoid colon. This is possibly due to underdistention and bowel spa sm but I cannot exclude mild segmental inflammation. 3. There are several nonspecific mildly prominen t shotty lymph nodes in the mesenteric root. These may be idiopathic, reactive, due to mesenteric adenitis, or a lymphoproliferative pr ocess. Impression By: [email or web address] Perla Dean M.D. CAT SCAN - CT ANGIO CHEST 07/04 1818 Report Impression - Status: SIGNED Entered: 07/04/2018 185 IMPRESSION: CHEST: 1. Normal thoracic aorta. No acute cardiopulmona ry process. 2. There is a 4 mm noncalcified right upper lobe pulmonary nodule. Pulmonary nodules this size in patients less alexi n 35 years of age are statistically most likely benign. Unless there i s a high risk for developing pulmonary malignancy, no additional f ollow-up would be recommended. If there is a high risk, consider f ollow-up CT chest in 12 months to evaluate long-term stability. ABDOMEN AND PELVIS: 1. Normal abdominal aorta. 2. There is segmental mucosal thickening of the sigmoid colon. This is possibly due to underdistention and bowel spa sm but I cannot exclude mild segmental inflammation. 3. There are several nonspecific mildly prominen t shotty lymph nodes in the mesenteric root. These may be idiopathic , reactive, due to mesenteric adenitis, or a lymphoproliferative pr ocess. Impression By: [email or web address] - Mk Dean M.D. ECG #1 Interpretation Text/Dict Note Sinus tachycardia, RSR or QR pattern in V1 suggests right ventricular conduction delay Date 07/04/18 Time 1756 Interpreted by ED physician NL ECG Interpretation No STEMI Rate [address] Chest Text/Dict Note IMPRESSION: CHEST: 1. Normal thoracic aorta. No acute cardiopulmona ry process. 2. There is a 4 mm noncalcified right upper lobe pulmonary nodule. Pulmonary nodules this size in patients less alexi n 35 years of age are statistically most likely benign. Unless there i s a high risk for developing pulmonary malignancy, no additional f ollow-up would be recommended. If there is a high risk, consider f ollow-up CT chest in 12 months to evaluate long-term stability. Interpretation/Wet Read by Interpret - Radiolog ist Reviewed by ED physician CT Abdomen/Pelvis Text/Dict Note ABDOMEN AND PELVIS: 1. Normal abdominal aorta. 2. There is segmental mucosal thickening of the sigmoid colon. This is possibly due to underdistention and bowel spa sm but I cannot exclude mild segmental inflammation. 3. There are several nonspecific mildly prominen t shotty lymph nodes in the mesenteric root. These may be idiopathic, reactive, due to mesenteric adenitis, or a lymphoproliferative pr ocess. Interpretation/Wet Read by Interpret - Radiolog ist Reviewed by ED physician Portions of this section were scribed by Gabino Wilson on 07/04/18 at 1934 Re-Evaluation MDM Free Text MDM Notes Free Text MDM Notes I personally interviewed and reexamined pt after episode of syncope after morphine given. Pt given narcan and pt became al ert again. H and P consistent w/ acute colitis, which was in turn reflected by CT findings. Re-Evaluation/Progress #2 Text/Dict Note Pt's condition improved as well as his HR, but s till experiences persistent pelvic pain. Discussed dx, lab results, imaging results, and recommended admission with pt. Pt agrees with the admission. Time of Eval 1927 Re-Eval Status Improved ED Course Medication(s) Ordered Consultation Consultation Referral/Consult Name Lynne Weaver MD [employer] Called Gastroenterology Requested Call Time 1933 Requested Call Date 07/04/18 Call Returned routine Portions of this section were scribed by Gabino Wilson on 07/04/18 at 1934 Patient Discharge Departure Vital Signs/Condition Vital Signs First Documented: Result Date Time Pulse Ox 99 07/04 1456 B/P 131/72 07/04 1456 B/P Mean 91 07/04 1456 O2 Delivery Room air 07/04 1455 Temp 37.4 07/04 145 Pulse 129 07/04 1456 Resp 18 07/04 1456 O2 Flow Rate [id number] 07/04 1755 Last Documented: Result Date Time Temp 36.9 07/04 1940 Pulse Ox 97 07/04 1928 B/P 143/77 07/04 192 B/P Mean 99 07/04 192 O2 Delivery Room air 07/04 1928 Pulse 103 07/04 192 Resp 18 07/04 1928 O2 Flow Rate [id number] 07/04 1755 All vital signs available at the time of this en try have been reviewed. Condition Guarded Clinical Impression Clinical Impression Primary Impression: Acute colitis Secondary Impressions: Sepsis Disposition Decision Admit Admit Physician Name Roxie Muller MD Admit Physician Hospitalist Request Time 1930 Request Date 07/04/18 )( Admission Accepts Yes )( Accepted Time 1930 )( Accepted Date 07/04/18 Call Information will see patient Discharge/Care Plan Counseled Regarding Diagnosi s, Lab results, Imaging studies, Need for admission Critical Care Time Spent (minutes): 38 Services Performed Patient management by Enrico samson spent at bedside, Reviewing test results, Reviewing imaging, Discussing eliz ent care, Documentation in record, Time with fam/surrogate Separately billable procedures excluded from enrico chodwhury. CC Note 1 Total critical care time 38 minutes. Total criti aidan care time documented does not include time spent on separately billed proc edures or the services of residents, students, nurses or physician assista nts. I personally saw and examined the patient. I have reviewed all diagno stic interpretations and treatment plans as written. I was present for the izaguirre portions of any procedures performed and the inclusive time noted in any critical care statement. Critical care time includes patient m anagement by me, time spent at the patients bedside, time to review lab and imaging results, discussing patient care, documentation in the medical record, and time spent with the f amily or caregiver. Supervising Physician Note Scribe Statement I have personally interviewed and examined the p atient. All charts, labs, and imaging studies were reviewed. I agree with the PA/PROCESS CHECKER's findings, exam, and plan. Portions of this note were t ranscribed by a Scribe. I, personally performed the history, physical exam and medical decis ion making; and confirmed the accuracy of the information in the transcribed note. Gabino Wilson, 07/04/181829, scribing for and in t he presence of Dr. Rodriguez Camp. Signed By: Gabino Wilson, 07/04/180 Portions of this section were scribed by Gabino Wilson on 07/04/18 at 1931 at 0014 Electronically Signed by Michael Cristina on at 0828 RPT #:[id number] END OF REPORT
--- NOTE | 2022-11-25 21:03 | ER ---
Nurse's Notes [facility] Name: uJan Gold Age: 32 yrs Sex: Male : 1990 Arrival Date: 11/25/2022 Time: 20:12 Bed IW4 Private MD: Diagnosis: Low back pain Presentation: 11/25 21:00 Chief complaint: Pt spoke with and was evaluated by Dr. Corley. Verbal discharge from [facility]. ED Course: 20:16 Patient arrived in ED. es 20:35 Mohan Corley MD is Attending Physician. bs3 Administered Medications: No medications were administered Outcome: 21:03 Discharge ordered by . bs3 21:04 [address] [facility] Signatures: Joy Flor Kyli, RN RN [facility] Mohan Corley MD MD bs3
--- NOTE | 2022-11-25 21:03 | EDPHYS ---
Physician Documentation [facility] Name: Juan Gold Age: 32 yrs Sex: Male : 1990 Arrival Date: 11/25/2022 Time: 20:12 Bed IW4 Private MD: ED Physician Mohan Corley HPI: 11/25 20:54 This 32 yrs old Male presents to ER via Unassigned with complaints of Post bs3 surgical problem, loud pob in back. 20:54 The patient presents with pain that is chronic. bs3 20:59 32-year-old male history of chronic back pain status post L5-S1 fusion presents with bs3 acute on chronic pain he notes bending over several days ago and hear a crack in his back he denies any new numbness tingling or weakness in his extremities he got an x-ray which was nondiagnostic but was told to get an MRI by his surgeon Dr. Jesus he was told to come here immediately for the MRI no urinary or bowel incontinence. ROS: 20:59 Constitutional: Negative for fever, chills Eyes: Negative for injury, pain, redness, bs3 and discharge, ENT: Negative for injury, pain, and discharge. 20:59 All other systems are negative. Exam: 20:59 Constitutional: This is a well developed, well nourished patient who is awake, alert, bs3 and in no acute distress. Head/Face: Normocephalic, atraumatic. Eyes: Pupils equal round and reactive to light, extra-ocular motions intact. Lids and lashes normal. ENT: mmm, no posterior phyarngeal erythema Neck: Trachea midline, no thyromegaly, no neck stiffness Chest/axilla: Normal chest wall appearance and motion. Nontender with no deformity. No lesions are appreciated. Back: Left paraspinal tenderness no midline tenderness no saddle anesthesia MS/ Extremity: Pulses equal, no cyanosis. Neurovascular intact. Full, normal range of motion. Neuro: Awake and alert, GCS 15, oriented to person, place, time, and situation. Cranial nerves II-XII grossly intact. Motor strength 5/5 in all extremities. Sensory grossly intact. MDM: 20:35 Patient medically screened. bs3 20:59 Data reviewed: vital signs, nurses notes. ED course: Patient here for acute on chronic bs3 back pain his x-rays as an outpatient were negative I discussed that I do not have access to MRI at this point in time although he has no red flag symptoms I spoke with Dr. Jesus his spine surgeon who will discuss with patient options. Administered Medications: No medications were administered Disposition Summary: 11/25/22 21:03 Discharge Ordered Location: Home bs3 Problem: new bs3 Symptoms: have improved bs3 Condition: Stable bs3 Diagnosis - Low back pain bs3 Followup: bs3 - With: Private Physician - When: 48 Hours - Reason: Re-evaluation by your physician Discharge Instructions: - Discharge Summary Sheet bs3 - Acute Back Pain, Adult bs3 - Chronic Back Pain bs3 Forms: - Medication Reconciliation Form bs3 - Thank You Letter bs3 - Antibiotic Education bs3 - Prescription Opioid Use bs3 Signatures: Mohan Corley MD MD bs3
== END 2022-11-25 21:04 | disposition home or self-care (01) ==
LOC: ER 20:12
DX: M54.50 Low back pain, unspecified (principal); Z98.890 Other specified postprocedural states
CPT/HCPCS: 99281